=== PATIENT | male | born 1975 | race Caucasian/White ===

== ENCOUNTER 2018-06-01 08:33 | Emergency (ER) | payer BC ==
[2018-06-01 08:37] VITALS: RESP 16
--- NOTE | 2018-06-01 08:56 | ED ---
Abdominal Pain HPI - General Chief Complaint: Abdominal Pain Stated Complaint: Kidney stone Source: patient Mode of arrival: ambulatory Limitations: no limitations - History of Present Illness Initial Comments: This patient is a 42-year-old man who presents with complaint of right groin and right flank pain. The patient states that this occurred around 1 AM while he was trying to sleep. He states that the pain came on and was relatively severe, constant for about an hour, and had sharp achy characteristic. He states that the pain then improved going down to about a 1 out of 10 intensity area he states that when he got up to get ready for work around 5 he noticed that there was blood in his urine. The patient spoke with his and they felt he should be evaluated here. The patient denies previous history. Patient is declining analgesia at my initial history and physical exam. MD Complaint: abdominal pain, flank pain Onset/Timin -: hour(s) Location: RLQ (Right groin), R flank Radiation: none Severity: mild Quality: sharp Consistency: constant Improves With: nothing Worsens With: nothing Associated Symptoms: hematuria - Related Data Home Medications Medication Instructions Recorded Confirmed Ibuprofen [Motrin Ib] 400 mg PO Q6H PRN 06/01/18 06/01/18 Previous Rx's Medication Instructions Recorded Ciprofloxacin HCl [Cipro] 500 mg PO Q12HR #14 tablet 06/01/18 Allergies Allergy/AdvReac Type Severity Reaction Status Date / Time No Known Allergies Allergy Verified 06/01/18 08:37 Review of Systems ROS Statement: Those systems with pertinent positive or pertinent negative responses have been documented in the HPI. ROS Other: All systems not noted in ROS Statement are negative. Constitutional: Denies: fever, chills Respiratory: Denies: cough, dyspnea Cardiovascular: Denies: chest pain, palpitations, syncope Gastrointestinal: Reports: as per HPI, abdominal pain. Denies: vomiting, diarrhea, constipation, melena Genitourinary: Reports: hematuria. Denies: dysuria, frequency, discharge, testicular pain, testicular mass Musculoskeletal: Denies: back pain Skin: Denies: rash Neurological: Denies: headache Hematological/Lymphatic: Denies: easy bleeding Past Medical History Past Medical History: No Reported History History of Any Multi-Drug Resistant Organisms: None Reported Past Surgical History: Orthopedic Surgery Past Psychological History: No Psychological Hx Reported Smoking Status: Current every day smoker Past Alcohol Use History: None Reported Past Drug Use History: None Reported General Exam Limitations: no limitations General appearance: alert, in no apparent distress Head exam: Present: atraumatic, normocephalic Eye exam: Present: normal appearance. Absent: scleral icterus, conjunctival injection ENT exam: Present: normal oropharynx Neck exam: Present: normal inspection Respiratory exam: Present: normal lung sounds bilaterally. Absent: respiratory distress, wheezes, rales, rhonchi, stridor Cardiovascular Exam: Present: regular rate, normal rhythm, normal heart sounds. Absent: systolic murmur, diastolic murmur, rubs, gallop GI/Abdominal exam: Present: soft. Absent: distended, tenderness, guarding, rebound, rigid, mass, pulsatile mass, hernia Extremities exam: Present: normal inspection, normal capillary refill. Absent: pedal edema, calf tenderness Back exam: Present: normal inspection. Absent: CVA tenderness (R), CVA tenderness (L), vertebral tenderness Neurological exam: Present: alert, normal gait Skin exam: Present: warm, dry, intact, normal color. Absent: rash Course Vital Signs 06/01/18 08:35 Temperature 97.9 F Pulse Rate 99 Respiratory 16 Rate Blood Pressure 163/98 O2 Sat by Pulse 99 Oximetry Medical Decision Making - Lab Data Result diagrams: 06/01/18 09:50 06/01/18 09:30 Lab Results 06/01/18 06/01/18 06/01/18 Range/Units 09:30 09:30 09:50 WBC 7.7 (3.8-10.6) k/uL RBC 5.69 (4.30-5.90) m/uL Hgb 17.2 (13.0-17.5) gm/dL Hct 50.6 (39.0-53.0) % MCV 89.0 (80.0-100.0) fL MCH 30.2 (25.0-35.0) pg MCHC 33.9 (31.0-37.0) g/dL RDW 13.1 (11.5-15.5) % Plt Count 197 (150-450) k/uL Neutrophils % 63 % Lymphocytes % 28 % Monocytes % 6 % Eosinophils % 1 % Basophils % 1 % Neutrophils # 4.9 (1.3-7.7) k/uL Lymphocytes # 2.2 (1.0-4.8) k/uL Monocytes # 0.5 (0-1.0) k/uL Eosinophils # 0.1 (0-0.7) k/uL Basophils # 0.0 (0-0.2) k/uL Sodium 142 (137-145) mmol/L Potassium 4.4 (3.5-5.1) mmol/L Chloride 110 H (98-107) mmol/L Carbon Dioxide 21 L (22-30) mmol/L Anion Gap 11 mmol/L BUN 14 (9-20) mg/dL Creatinine 0.74 (0.66-1.25) mg/dL Est GFR (CKD-EPI)AfAm >90 (>60 ml/min/1.73 sqM) Est GFR (CKD-EPI)NonAf >90 (>60 ml/min/1.73 sqM) Glucose 98 (74-99) mg/dL Calcium 9.9 (8.4-10.2) mg/dL Total Bilirubin 0.6 (0.2-1.3) mg/dL AST 25 (17-59) U/L ALT 51 (21-72) U/L Alkaline Phosphatase 77 (38-126) U/L Total Protein 8.1 (6.3-8.2) g/dL Albumin 4.7 (3.5-5.0) g/dL Amylase 51 (30-110) U/L Lipase 51 (23-300) U/L Urine Color Light Red Urine Appearance Cloudy (Clear) Urine pH 5.5 (5.0-8.0) Ur Specific [place] 1.018 (1.001-1.035) Urine Protein 1+ H (Negative) Urine Glucose (UA) Negative (Negative) Urine Ketones Negative (Negative) Urine Blood Large H (Negative) Urine Nitrite Negative (Negative) Urine Bilirubin Negative (Negative) Urine Urobilinogen <2.0 (<2.0) mg/dL Ur Leukocyte Esterase Trace H (Negative) Urine RBC >182 H (0-5) /hpf Urine WBC 31 H (0-5) /hpf Urine Mucus Occasional H (None) /hpf Disposition Clinical Impression: Flank pain, Hematuria Disposition: HOME SELF-CARE Condition: Good Instructions (If sedation given, give patient instructions): Kidney Stones (ED) Prescriptions: Ciprofloxacin HCl [Cipro] 500 mg PO Q12HR #14 tablet Is patient prescribed a controlled substance at d/c from ED?: No Referrals: Checo Spears MD [Primary Care Provider] - 1-2 days Osmani Elizabeth MD [STAFF PHYSICIAN] - 1-2 days
[2018-06-01 09:51] LABS: ALT 51 U/L (21-72); AST 25 U/L (17-59); Albumin 4.7 g/dL (3.5-5.0); Alkaline Phosphatase 77 U/L (38-126); Amylase 51 U/L (30-110); Anion Gap 11 mmol/L; Blood Urea Nitrogen 14 mg/dL (9-20); Calcium 9.9 mg/dL (8.4-10.2); Carbon Dioxide 21 mmol/L (22-30); Chloride 110 mmol/L (98-107); Glucose 98 mg/dL (74-99); Lipase 51 U/L (23-300); Potassium 4.4 mmol/L (3.5-5.1); Sodium 142 mmol/L (137-145); Total Bilirubin 0.6 mg/dL (0.2-1.3); Total Protein 8.1 g/dL (6.3-8.2)
[2018-06-01 09:59] LABS: Basophils % (A) 1 %; Eosinophils # (A) 0.1 k/uL (0-0.7); Eosinophils % (A) 1 %; HCT 50.6 % (39.0-53.0); HGB 17.2 gm/dL (13.0-17.5); Lymphocytes # (A) 2.2 k/uL (1.0-4.8); Lymphocytes % (A) 28 %; MCH 30.2 pg (25.0-35.0); MCHC 33.9 g/dL (31.0-37.0); Mean Platelet Volume 7.1; Monocytes # (A) 0.5 k/uL (0-1.0); Monocytes % (A) 6 %; Neutrophils # (A) 4.9 k/uL (1.3-7.7); Neutrophils % (A) 63 %; Platelet Count 197 k/uL (150-450); RBC 5.69 m/uL (4.30-5.90); RDW 13.1 % (11.5-15.5); WBC 7.7 k/uL (3.8-10.6)
[2018-06-01 10:01] LABS: Appearance,Urine Cloudy (Clear); Bilirubin,Urine Negative (Negative); Blood,Urine Large (Negative); Color,Urine Light Red; Glucose,Urine (UA) Negative (Negative); Ketones,Urine Negative (Negative); Leukocyte Esterase,Urine Trace (Negative); Mucus,Urine Occasional /hpf; Nitrite,Urine Negative (Negative); PH, Urine 5.5 (5.0-8.0); Protein,Urine 1+ (Negative); RBC,Urine >182 /hpf (0-5); Specific Gravity,Urine 1.018 (1.001-1.035); Urobilinogen,Urine <2.0 mg/dL (<2.0); WBC,Urine 31 /hpf (0-5)
--- NOTE | 2018-06-01 10:36 | CT ---
EXAMINATION TYPE: CT abdomen pelvis wo con DATE OF EXAM: 06/01/2018 HISTORY: Gross hematuria, right-sided flank pain. CT DLP: 628.4 mGycm. Automated Exposure Control for Dose Reduction was Utilized. TECHNIQUE: CT scan of the abdomen and pelvis is performed without oral or IV contrast. COMPARISON: NONE FINDINGS: Within the limitations of a non-contrast study, the following observations are made. LUNG BASES: Dependent atelectasis bilaterally. Additional linear atelectasis and/or scarring in the l ing[place] near diaphragm. LIVER/GB: Liver is heterogeneously isodense relative to spleen suggesting mild diffuse fatty infiltra tion. PANCREAS: No significant abnormality is seen. SPLEEN: No significant abnormality is seen. ADRENALS: No significant abnormality is seen. KIDNEYS: No left-sided nephrolithiasis or hydronephrosis. There is single 3 mm nonobstructing calculu s lower pole level right kidney axial image 46. No hydronephrosis or obstructing right ureter calculi are seen. No intraluminal calculi in poorly distended bladder are identified. BOWEL: Normal-appearing appendix extends medially from cecum in the right upper to mid pelvis. No michelle picious small or large bowel dilatation. GENITAL ORGANS: No gross abnormality seen. LYMPH NODES: No greater than 1cm abdominal or pelvic lymph nodes are appreciated. OSSEOUS STRUCTURES: No significant abnormality is seen. OTHER: Small fat-containing bilateral inguinal hernias. Mild calcified plaque of aorta extends into i liac branch vessels. IMPRESSION: Single 3 mm nonobstructing lower pole right renal calculus. No hydronephrosis or obstruct ing ureter calculi are identified bilaterally.
[2018-06-01 10:57] VITALS: BP 136/93; PULSE 74; TEMP 98.3
== END 2018-06-01 10:50 | disposition home or self-care (01) ==
LOC: EC 08:33
DX: R10.31 Right lower quadrant pain (principal); R31.9 Hematuria, unspecified; F17.200 Nicotine dependence, unspecified, uncomplicated
CPT/HCPCS: 36415; 74176; 80053; 81001; 82150; 83690; 85025; 99284

== ENCOUNTER 2018-06-02 18:35 | Emergency (ER) | payer BC ==
[2018-06-02 18:40] VITALS: TEMP 97.7
[2018-06-02] MEDS ORDERED: SODIUM CHLORIDE 0.9% 1,000 ML IV STA (18:49)
[2018-06-02] MEDS ORDERED: MORPHINE SULFATE 4 MG/ML SYRINGE IV STA (18:49)
[2018-06-02] MEDS ORDERED: ONDANSETRON 4 MG/2 ML VIAL IVP STA (18:49)
--- NOTE | 2018-06-02 18:55 | ED ---
General Adult HPI - General Chief complaint: Abdominal Pain Stated complaint: Kidney stone Time Seen by Provider: 06/02/18 18:40 Source: patient, RN notes reviewed Mode of arrival: ambulatory Limitations: no limitations - History of Present Illness Initial comments: 42-year-old male presents to the emergency department for a chief complaint of right flank pain. Patient states this started 2 nights ago in his right groin pain that migrated to his right back. Patient states he also hematuria at that time. He states he presented to the emergency department yesterday but pain has mostly subsided. He had a CAT scan that showed a nonobstructing renal calculus in the right kidney. He states pain has been tolerable until about 2 hours ago when it worsened significantly. He states moving around seems to make the pain better. He was nauseous at home and did vomit due to the pain.Patient has no other complaints at this time including shortness of breath , chest pain, abdominal pain, nausea or vomiting, headache, or visual changes. - Related Data Previous Rx's Medication Instructions Recorded Ciprofloxacin HCl [Cipro] 500 mg PO Q12HR #14 tablet 06/01/18 HYDROcodone/APAP 5-325MG [[place] 1 tab PO Q6HR PRN #12 tab 06/02/18 5-325] Ibuprofen [Motrin] 600 mg PO Q8HR PRN #20 tab 06/02/18 Ondansetron [Zofran ODT] 4 mg PO Q8HR PRN #15 tab 06/02/18 Tamsulosin [Flomax] 0.4 mg PO DAILY #10 cap 06/02/18 Allergies Allergy/AdvReac Type Severity Reaction Status Date / Time No Known Allergies Allergy Verified 06/02/18 19:28 Review of Systems ROS Statement: Those systems with pertinent positive or pertinent negative responses have been documented in the HPI. ROS Other: All systems not noted in ROS Statement are negative. Past Medical History Past Medical History: No Reported History History of Any Multi-Drug Resistant Organisms: None Reported Past Surgical History: Orthopedic Surgery Past Psychological History: No Psychological Hx Reported Smoking Status: Current every day smoker Past Alcohol Use History: None Reported Past Drug Use History: None Reported General Exam Limitations: no limitations General appearance: alert, in no apparent distress Head exam: Present: atraumatic, normocephalic, normal inspection Eye exam: Present: normal appearance, PERRL, EOMI. Absent: scleral icterus, conjunctival injection, periorbital swelling ENT exam: Present: normal exam, mucous membranes moist Neck exam: Present: normal inspection, full ROM. Absent: tenderness, meningismus, lymphadenopathy Respiratory exam: Present: normal lung sounds bilaterally. Absent: respiratory distress, wheezes, rales, rhonchi, stridor Cardiovascular Exam: Present: regular rate, normal rhythm, normal heart sounds. Absent: systolic murmur, diastolic murmur, rubs, gallop, clicks GI/Abdominal exam: Present: soft, normal bowel sounds. Absent: distended, tenderness (no signif tenderness noted in abdomen), guarding, rebound, rigid Back exam: Present: CVA tenderness (R). Absent: CVA tenderness (L) Neurological exam: Present: alert, oriented X3, CN II-XII intact Psychiatric exam: Present: normal affect, normal mood Course Vital Signs 06/02/18 06/02/18 06/02/18 18:39 19:57 21:02 Temperature 97.7 F Pulse Rate 75 91 78 Respiratory 18 16 Rate Blood Pressure 211/114 177/109 167/100 O2 Sat by Pulse 98 96 100 Oximetry - Reevaluation(s) Reevaluation #1: 06/02/18 194: PATIENT FEELING MUCH BETTER, PAIN CURRENTLY AT A 2 Medical Decision Making - Medical Decision Making 42-year-old male presents to the emergency department for a chief complaint of right flank pain radiating to the right groin. Patient states this started early yesterday morning and he was seen in the emergency department and diagnosed with a kidney stone. Patient states pain was improved until about 2 hours ago and it worsened again. He states movement makes the pain better and resting in one position seems to make him more uncomfortable. CT from yesterday did show a 3 mm renal stone nonobstructing. Hematuria noted. Urinalysis repeated today did show hematuria. It is likely patient is experiencing renal colic or the stone has now lodged in the ureter. At this time Dr. Saleem and myself believe it is not necessary to repeat the CAT scan given patient symptoms are consistent with renal colic. Patient's pain was much improved on re-evaluation.. Patient's hypertension improved, likely due to pain. XR was ordered for urologist. Patient will be given [place] for pain at home, discussed not driving or operating machinery with this. Patient agrees to this. He will return here if he has worsening symptoms. Otherwise he will follow-up with urology. - Lab Data Result diagrams: 06/02/18 19:07 06/02/18 19:07 Lab Results 06/02/18 06/02/18 06/02/18 Range/Units 19:07 19:07 19:59 WBC 14.4 H (3.8-10.6) k/uL RBC 5.34 (4.30-5.90) m/uL Hgb 16.2 (13.0-17.5) gm/dL Hct 48.6 (39.0-53.0) % MCV 91.0 (80.0-100.0) fL MCH 30.4 (25.0-35.0) pg MCHC 33.4 (31.0-37.0) g/dL RDW 13.5 (11.5-15.5) % Plt Count 232 (150-450) k/uL Neutrophils % 75 % Lymphocytes % 17 % Monocytes % 5 % Eosinophils % 1 % Basophils % 0 % Neutrophils # 10.8 H (1.3-7.7) k/uL Lymphocytes # 2.5 (1.0-4.8) k/uL Monocytes # 0.7 (0-1.0) k/uL Eosinophils # 0.1 (0-0.7) k/uL Basophils # 0.1 (0-0.2) k/uL Sodium 140 (137-145) mmol/L Potassium 4.5 (3.5-5.1) mmol/L Chloride 108 H (98-107) mmol/L Carbon Dioxide 21 L (22-30) mmol/L Anion Gap 11 mmol/L BUN 21 H (9-20) mg/dL Creatinine 1.09 (0.66-1.25) mg/dL Est GFR (CKD-EPI)AfAm >90 (>60 ml/min/1.73 sqM) Est GFR (CKD-EPI)NonAf 83 (>60 ml/min/1.73 sqM) Glucose 123 H (74-99) mg/dL Calcium 10.1 (8.4-10.2) mg/dL Total Bilirubin 0.6 (0.2-1.3) mg/dL AST 26 (17-59) U/L ALT 44 (21-72) U/L Alkaline Phosphatase 91 (38-126) U/L Total Protein 8.3 H (6.3-8.2) g/dL Albumin 4.9 (3.5-5.0) g/dL Amylase 51 (30-110) U/L Lipase 57 (23-300) U/L Urine Color Light Yellow Urine Appearance Cloudy (Clear) Urine pH 7.5 (5.0-8.0) Ur Specific [place] 1.014 (1.001-1.035) Urine Protein Negative (Negative) Urine Glucose (UA) Negative (Negative) Urine Ketones Negative (Negative) Urine Blood Moderate H (Negative) Urine Nitrite Negative (Negative) Urine Bilirubin Negative (Negative) Urine Urobilinogen <2.0 (<2.0) mg/dL Ur Leukocyte Esterase Negative (Negative) Urine RBC 163 H (0-5) /hpf Urine WBC 3 (0-5) /hpf Amorphous Sediment Few H (None) /hpf Urine Mucus Rare H (None) /hpf Disposition Clinical Impression: Renal colic on right side, Hematuria Disposition: HOME SELF-CARE Condition: Good Instructions (If sedation given, give patient instructions): Kidney Stones (ED) Additional Instructions: Please take medicine as directed. Please follow-up with urology in 1-2 days. Please return here to the emergency department if youre having any worsening symptoms. Prescriptions: HYDROcodone/APAP 5-325MG [[place] 5-325] 1 tab PO Q6HR PRN #12 tab PRN Reason: Pain Ibuprofen [Motrin] 600 mg PO Q8HR PRN #20 tab PRN Reason: Pain Ondansetron [Zofran ODT] 4 mg PO Q8HR PRN #15 tab PRN Reason: Nausea Tamsulosin [Flomax] 0.4 mg PO DAILY #10 cap Is patient prescribed a controlled substance at d/c from ED?: No Referrals: Checo Spears MD [Primary Care Provider] - 1-2 days Mak Downey MD [STAFF PHYSICIAN] - 1-2 days Time of Disposition: 21:22
[2018-06-02] MEDS ORDERED: KETOROLAC 30 MG/ML 1 ML VIAL IVP STA (19:06)
[2018-06-02 19:23] LABS: Basophils # (A) 0.1 k/uL (0-0.2); Basophils % (A) 0 %; Eosinophils # (A) 0.1 k/uL (0-0.7); Eosinophils % (A) 1 %; HCT 48.6 % (39.0-53.0); HGB 16.2 gm/dL (13.0-17.5); Lymphocytes # (A) 2.5 k/uL (1.0-4.8); Lymphocytes % (A) 17 %; MCH 30.4 pg (25.0-35.0); MCHC 33.4 g/dL (31.0-37.0); Mean Platelet Volume 6.6; Monocytes # (A) 0.7 k/uL (0-1.0); Monocytes % (A) 5 %; Neutrophils # (A) 10.8 k/uL (1.3-7.7); Neutrophils % (A) 75 %; Platelet Count 232 k/uL (150-450); RBC 5.34 m/uL (4.30-5.90); RDW 13.5 % (11.5-15.5); WBC 14.4 k/uL (3.8-10.6)
[2018-06-02 19:37] LABS: ALT 44 U/L (21-72); AST 26 U/L (17-59); Albumin 4.9 g/dL (3.5-5.0); Alkaline Phosphatase 91 U/L (38-126); Amylase 51 U/L (30-110); Anion Gap 11 mmol/L; Blood Urea Nitrogen 21 mg/dL (9-20); Calcium 10.1 mg/dL (8.4-10.2); Carbon Dioxide 21 mmol/L (22-30); Chloride 108 mmol/L (98-107); Glucose 123 mg/dL (74-99); Lipase 57 U/L (23-300); Potassium 4.5 mmol/L (3.5-5.1); Sodium 140 mmol/L (137-145); Total Bilirubin 0.6 mg/dL (0.2-1.3); Total Protein 8.3 g/dL (6.3-8.2)
[2018-06-02 19:58] VITALS: RESP 16
[2018-06-02 20:13] LABS: Amorphous Sediment,Urine Few /hpf; Appearance,Urine Cloudy (Clear); Bilirubin,Urine Negative (Negative); Blood,Urine Moderate (Negative); Color,Urine Light Yellow; Glucose,Urine (UA) Negative (Negative); Ketones,Urine Negative (Negative); Leukocyte Esterase,Urine Negative (Negative); Mucus,Urine Rare /hpf; Nitrite,Urine Negative (Negative); PH, Urine 7.5 (5.0-8.0); Protein,Urine Negative (Negative); RBC,Urine 163 /hpf (0-5); Specific Gravity,Urine 1.014 (1.001-1.035); Urobilinogen,Urine <2.0 mg/dL (<2.0); WBC,Urine 3 /hpf (0-5)
[2018-06-02] MEDS ORDERED: HYDROmorphone 0.5 MG/0.5 ML SYRINGE IVP STA (20:40)
--- NOTE | 2018-06-02 20:48 | XR ---
EXAMINATION TYPE: XR KUB DATE OF EXAM: 06/02/2018 COMPARISON: NONE HISTORY: Pain TECHNIQUE: 2 views FINDINGS: There is no sign of intestinal obstruction or pneumoperitoneum. Fecal pattern is normal. Th ere are no pathologic calcifications. Lung bases are clear. IMPRESSION: Nonacute abdomen.
[2018-06-02 21:02] VITALS: BP 167/100; PULSE 78
== END 2018-06-02 21:51 | disposition home or self-care (01) ==
LOC: EC 18:35
DX: N23 Unspecified renal colic (principal); R31.9 Hematuria, unspecified; I10 Essential (primary) hypertension; F17.200 Nicotine dependence, unspecified, uncomplicated
CPT/HCPCS: 36415; 80053; 82150; 83690; 85025; 81001; 87086; 74018; 99284; 96374; 96375 ×3; 96361; J2270; J2405; J1885; J1170

== ENCOUNTER 2018-06-04 13:05 | Observation (INO) | payer BC ==
[2018-06-04] MEDS ORDERED: SODIUM CHLORIDE 0.9% 1,000 ML IV STA (13:52)
[2018-06-04] MEDS ORDERED: oxyCODONE-APAP 7.5-325MG 1 EACH TAB PO STA (14:01)
[2018-06-04 14:10] LABS: Basophils % (A) 0 %; Eosinophils % (A) 0 %; HCT 47.5 % (39.0-53.0); HGB 16.5 gm/dL (13.0-17.5); Lymphocytes # (A) 1.5 k/uL (1.0-4.8); Lymphocytes % (A) 12 %; MCH 30.7 pg (25.0-35.0); MCHC 34.7 g/dL (31.0-37.0); MCV 88.7 fL (80.0-100.0); Mean Platelet Volume 7.2; Monocytes # (A) 0.8 k/uL (0-1.0); Monocytes % (A) 6 %; Neutrophils % (A) 80 %; Platelet Count 175 k/uL (150-450); RBC 5.36 m/uL (4.30-5.90); WBC 12.6 k/uL (3.8-10.6)
[2018-06-04 14:18] LABS: Calcium 9.7 mg/dL (8.4-10.2); Potassium 4.2 mmol/L (3.5-5.1)
[2018-06-04 14:21] LABS: Appearance,Urine Clear (Clear); Bilirubin,Urine Negative (Negative); Blood,Urine Moderate (Negative); Color,Urine Yellow; Glucose,Urine (UA) Negative (Negative); Hyaline Casts,Urine 1 /lpf (0-2); Ketones,Urine Trace (Negative); Leukocyte Esterase,Urine Negative (Negative); Mucus,Urine Rare /hpf; Nitrite,Urine Negative (Negative); PH, Urine 5.5 (5.0-8.0); Protein,Urine Trace (Negative); RBC,Urine 6 /hpf (0-5); Specific Gravity,Urine 1.024 (1.001-1.035); Urobilinogen,Urine <2.0 mg/dL (<2.0); WBC,Urine 1 /hpf (0-5)
--- NOTE | 2018-06-04 14:52 | US ---
EXAMINATION TYPE: US kidneys/renal and bladder DATE OF EXAM: 06/04/2018 COMPARISON: NONE CLINICAL HISTORY: eval Kidney, ureter, bladder, recently dx stone. right sided pain ongoing for days, known 3mm right renal stone EXAM MEASUREMENTS: Right Kidney: 12.3 x 6.5 x 6.4 cm Left Kidney: 12.0 x 6.3 x 5.9 cm Right Kidney: No hydronephrosis or masses seen Left Kidney: No hydronephrosis or masses seen Bladder: minimally distended, appears wnl Bilateral Jets seen: no There is no evidence for hydronephrosis at this point in time. No nephrolithiasis is seen. No dc s are identified. The urinary bladder is anechoic. Bilateral ureteral jets are seen. IMPRESSION: No evidence of renal mass or obstruction. Negative exam.
--- NOTE | 2018-06-04 15:15 | ED ---
General Adult HPI - General Chief complaint: Urogenital Stated complaint: POSS KIDNEY STONE Time Seen by Provider: 06/04/18 13:39 Source: patient Mode of arrival: ambulatory Limitations: no limitations - History of Present Illness Initial comments: Patient is a 42-year-old male presenting for right flank pain. Patient states that on , he was diagnosed with 3 mm stone. He was seen here for hematuria at that time. He was then seen again on Tuesday for worsening pain. He states that he was given additional medicine and that he was discharged. He states that he is his unable to tolerate the pain as it is located on the right flank and feels a constant pressure. He denies any fevers or chills and states that he has been able to urinate without difficulty. - Related Data Previous Rx's Medication Instructions Recorded Ciprofloxacin HCl [Cipro] 500 mg PO Q12HR #14 tablet 06/01/18 HYDROcodone/APAP 5-325MG [[place] 1 tab PO Q6HR PRN #12 tab 06/02/18 5-325] Ibuprofen [Motrin] 600 mg PO Q8HR PRN #20 tab 06/02/18 Ondansetron [Zofran ODT] 4 mg PO Q8HR PRN #15 tab 06/02/18 Tamsulosin [Flomax] 0.4 mg PO DAILY #10 cap 06/02/18 Allergies Allergy/AdvReac Type Severity Reaction Status Date / Time No Known Allergies Allergy Verified 06/04/18 14:22 Review of Systems ROS Statement: Those systems with pertinent positive or pertinent negative responses have been documented in the HPI. Constitutional: Negative for chills, fatigue and fever. HENT: Negative for congestion. Respiratory: Negative for chest tightness, shortness of breath and wheezing. Negative for cough Cardiovascular: Negative for chest pain and palpitations. Gastrointestinal: Positive for abdominal pain and nausea. Negative for abdominal distention, diarrhea, and vomiting. Genitourinary: Negative for dysuria. Musculoskeletal: Negative for back pain, neck pain and neck stiffness. Skin: Negative for color change. Neurological: Negative for dizziness, speech difficulty, weakness and light- headedness. Psychiatric/Behavioral: Negative for agitation and confusion. Negative for anxiety ROS Other: All systems not noted in ROS Statement are negative. Past Medical History Past Medical History: No Reported History Additional Past Medical History / Comment(s): kidney stones History of Any Multi-Drug Resistant Organisms: None Reported Past Surgical History: Orthopedic Surgery Past Psychological History: No Psychological Hx Reported Smoking Status: Current every day smoker Past Alcohol Use History: Rare Past Drug Use History: None Reported General Exam - General Exam Comments Initial Comments: Constitutional: Pt appears well-developed and well-nourished. No distress. Head: Normocephalic and atraumatic. Eyes: EOM are normal. Neck: Normal range of motion. Neck supple. Cardiovascular: Tachycardia, regular rhythm, S1 normal, S2 normal and normal heart sounds. Exam reveals no gallop and no friction rub. No murmur heard. Pulmonary/Chest: Effort normal and breath sounds normal. No tachypnea and no bradypnea. No respiratory distress. No wheezes or rales noted. Abdominal: Soft. Bowel sounds are normal. Pt exhibits no shifting dullness, no distension, no pulsatile liver, no fluid wave, no abdominal bruit and no ascites. There is no rigidity, no rebound, no guarding, no tenderness at McBurney's point and negative Humphrey's sign. There is no tenderness. Positive for right flank tenderness Musculoskeletal: Normal range of motion. Neurological: Pt is alert and oriented to person, place, and time. No cranial nerve deficit. Skin: Skin is warm and dry. No rash noted. Pt is not diaphoretic. No erythema. No pallor. Psychiatric: Pt has a normal mood and affect. Pt behavior is normal. Thought content normal. Limitations: no limitations Course Vital Signs 06/04/18 06/04/18 06/04/18 13:22 16:46 17:02 Temperature 98.5 F Pulse Rate 104 H 95 86 Respiratory 18 16 16 Rate Blood Pressure 188/94 168/105 135/83 O2 Sat by Pulse 97 95 95 Oximetry Medical Decision Making - Medical Decision Making Laboratory studies showed that there was mild leukocytosis at 12.6 but there was no evidence of urinary tract infection from the urinalysis. BMP showed that there was evidence of acute kidney injury with a creatinine rising from 0.74 to the latest value of 1.55. GFR is also decreased from greater than 90 to 63. Case was discussed with Dr. Martínez after KUB and ultrasound of the abdomen showed no significant findings and it was recommended that CT of the abdomen be performed. CT showed small obstructing calculi at the right UVJ. Calculus had migrated from the lower pole of the right kidney compared to last exam and there was evidence of hydroureter as well as right-sided hydronephrosis. Case was then again discussed with Dr. Martínez and it was mutually agreed that the patient will be admitted to hospital for pain control as he had a heart doses of narcotics. - Lab Data Result diagrams: 06/04/18 13:41 06/04/18 13:41 Lab Results 06/04/18 06/04/18 06/04/18 Range/Units 13:41 13:41 13:41 WBC 12.6 H (3.8-10.6) k/uL RBC 5.36 (4.30-5.90) m/uL Hgb 16.5 (13.0-17.5) gm/dL Hct 47.5 (39.0-53.0) % MCV 88.7 (80.0-100.0) fL MCH 30.7 (25.0-35.0) pg MCHC 34.7 (31.0-37.0) g/dL RDW 13.0 (11.5-15.5) % Plt Count 175 (150-450) k/uL Neutrophils % 80 % Lymphocytes % 12 % Monocytes % 6 % Eosinophils % 0 % Basophils % 0 % Neutrophils # 10.0 H (1.3-7.7) k/uL Lymphocytes # 1.5 (1.0-4.8) k/uL Monocytes # 0.8 (0-1.0) k/uL Eosinophils # 0.0 (0-0.7) k/uL Basophils # 0.0 (0-0.2) k/uL Sodium 137 (137-145) mmol/L Potassium 4.2 (3.5-5.1) mmol/L Chloride 105 (98-107) mmol/L Carbon Dioxide 23 (22-30) mmol/L Anion Gap 9 mmol/L BUN 19 (9-20) mg/dL Creatinine 1.55 H (0.66-1.25) mg/dL Est GFR (CKD-EPI)AfAm 63 (>60 ml/min/1.73 sqM) Est GFR (CKD-EPI)NonAf 54 (>60 ml/min/1.73 sqM) Glucose 119 H (74-99) mg/dL Calcium 9.7 (8.4-10.2) mg/dL Urine Color Yellow Urine Appearance Clear (Clear) Urine pH 5.5 (5.0-8.0) Ur Specific [place] 1.024 (1.001-1.035) Urine Protein Trace H (Negative) Urine Glucose (UA) Negative (Negative) Urine Ketones Trace H (Negative) Urine Blood Moderate H (Negative) Urine Nitrite Negative (Negative) Urine Bilirubin Negative (Negative) Urine Urobilinogen <2.0 (<2.0) mg/dL Ur Leukocyte Esterase Negative (Negative) Urine RBC 6 H (0-5) /hpf Urine WBC 1 (0-5) /hpf Hyaline Casts 1 (0-2) /lpf Urine Mucus Rare H (None) /hpf Disposition Clinical Impression: Acute kidney injury, Ureteral calculi, Intractable pain Disposition: ADMITTED IP TO THIS [facility] Condition: Good Referrals: Checo Spears MD [Primary Care Provider] - 1-2 days Decision to Admit Reason: Admit from EC Decision Date: 06/04/18 Decision Time: 18:42
--- NOTE | 2018-06-04 15:25 | XR ---
EXAMINATION TYPE: XR KUB DATE OF EXAM: 06/04/2018 COMPARISON: NONE HISTORY: Renal stone. Pain. TECHNIQUE: 2 views upright FINDINGS: There is no sign of intestinal obstruction or pneumoperitoneum. Fecal pattern is normal. I see no pathologic calcification over the kidneys and ureters. Lung bases are clear. IMPRESSION: Nonacute abdomen.
[2018-06-04] MEDS ORDERED: MORPHINE SULFATE 4 MG/ML SYRINGE IVP STA (15:36)
[2018-06-04] MEDS ORDERED: ONDANSETRON 4 MG/2 ML VIAL IVP STA (15:42)
[2018-06-04] MEDS ORDERED: HYDROmorphone 0.5 MG/0.5 ML SYRINGE IVP STA (16:19)
[2018-06-04] MEDS ORDERED: KETOROLAC 30 MG/ML 1 ML VIAL IVP STA (16:19)
--- NOTE | 2018-06-04 17:07 | CT ---
EXAMINATION TYPE: CT abdomen pelvis wo con DATE OF EXAM: 06/04/2018 COMPARISON: 06/01/2018 HISTORY: Right flank pain CT DLP: 642.4 mGycm Automated exposure control for dose reduction was used. TECHNIQUE: Helical acquisition of images was performed from the lung bases through the pelvis. FINDINGS: There is some patchy atelectasis at the lung bases. There is small hiatal hernia. Heart size is ede l. There is no pericardial effusion. There is no pleural effusion. Liver spleen pancreas appear normal. Gallbladder appears normal. Bile ducts are not dilated. Kidneys have normal size. There is right-sided hydronephrosis and mild perinephric edema. There is ri ght-sided hydroureter. There is right side. Ureteral edema. There is a 5 mm calculus at the right ure terovesical junction. Bladder distends smoothly. Left kidney shows no hydronephrosis. There is no ing uinal hernia. There is no free fluid in the pelvis. There is no evidence of a bowel obstruction. Appendix appears n ormal. There is no mesenteric edema. The bony structures are intact. Lumbar spine appears normal. IMPRESSION: SMALL OBSTRUCTING CALCULUS AT THE RIGHT URETEROVESICAL JUNCTION. CALCULUS HAS MIGRATED FROM THE LOWER POLE RIGHT KIDNEY COMPARED TO LAST EXAM.
[2018-06-04] MEDS ORDERED: ACETAMINOPHEN TAB 325 MG TAB PO PRN (18:34)
[2018-06-04] MEDS ORDERED: ONDANSETRON 4 MG/2 ML VIAL IVP PRN (18:34)
[2018-06-04] MEDS ORDERED: NALOXONE 0.4 MG/ML 1 ML VIAL IV PRN (18:34)
[2018-06-04] MEDS ORDERED: SODIUM CHLORIDE 0.9% 1,000 ML IV SCH (18:45)
[2018-06-04] MEDS ORDERED: BISACODYL 10 MG SUPP RECTAL STA (20:38)
[2018-06-04] MEDS ORDERED: TAMSULOSIN 0.4 MG CAP.ER.24H PO SCH (20:45)
[2018-06-04] MEDS: HYDROmorphone 0.5 MG/0.5 ML SYRINGE IVP PRN (21:27)
[2018-06-04] MEDS: DOCUSATE 100 MG CAP PO SCH (21:30)
[2018-06-05 00:18] VITALS: RESP 16
[2018-06-05] MEDS: KETOROLAC 30 MG/ML 1 ML VIAL IVP PRN ×2 (00:36→07:02)
[2018-06-05] MEDS: HYDROmorphone 0.5 MG/0.5 ML SYRINGE IVP PRN ×4 (00:37→10:11)
--- NOTE | 2018-06-05 06:54 | P.GSHP ---
History of Present Illness H&P Date: 06/05/18 This is a 42-year-old gentleman who since last has had acute right sided flank and right lower quadrant pain. He was evaluated emergency room where a computed tomography scan identified a renal stone. He was discharged home only to return twice more including last night. The pain became quite severe. His creatinine elevated 1.5. KUB was nonspecific at that point in time. Emergency room contacted me and I recommended a repeat computed tomography scan is given the history of bloody urine flank pain and a rising creatinine I expected that he had an obstruction since he had no other major medical illnesses. The computed tomography scan last night identified a 5 mm stone at the ureterovesical junction. Due to persistent pain he is brought in the hospital. This is the patient's first stone. There's been no fever or chills. He has no other urologic issues. He has no other stones on the computed tomography scan reviewed by me. - Constitutional Constitutional: Denies chills, Denies fever - EENT Eyes: denies blurred vision, denies pain Ears, nose, mouth and throat: Denies headache, Denies sore throat - Cardiovascular Cardiovascular: Denies chest pain, Denies shortness of breath - Respiratory Respiratory: Denies cough, Denies 7 - Gastrointestinal Gastrointestinal: Denies abdominal pain, Denies diarrhea, Denies nausea, Denies vomiting - Genitourinary (Female) Genitourinary: Denies dysuria, Denies hematuria - Genitourinary (Male) Genitourinary: Denies dysuria, Denies hematuria - Musculoskeletal Musculoskeletal: Denies myalgias - Integumentary Integumentary: Denies pruritus, Denies rash - Neurological Neurological: Denies numbness, Denies weakness - Psychiatric Psychiatric: Denies anxiety, Denies depression - Endocrine Endocrine: Denies fatigue, Denies weight change Past Medical History Past Medical History: No Reported History Additional Past Medical History / Comment(s): kidney stones History of Any Multi-Drug Resistant Organisms: None Reported Past Surgical History: Orthopedic Surgery Past Psychological History: No Psychological Hx Reported Smoking Status: Current every day smoker Past Alcohol Use History: Rare Past Drug Use History: None Reported Medications and Allergies Home Medications Medication Instructions Recorded Confirmed Type Ciprofloxacin HCl [Cipro] 500 mg PO Q12HR #14 tablet 06/01/18 06/04/18 Rx HYDROcodone/APAP 5-325MG [[place] 1 tab PO Q6HR PRN #12 tab 06/02/18 06/04/18 Rx 5-325] Ibuprofen [Motrin] 600 mg PO Q8HR PRN #20 tab 06/02/18 06/04/18 Rx Ondansetron [Zofran ODT] 4 mg PO Q8HR PRN #15 tab 06/02/18 06/04/18 Rx Tamsulosin [Flomax] 0.4 mg PO DAILY #10 cap 06/02/18 06/04/18 Rx Allergies Allergy/AdvReac Type Severity Reaction Status Date / Time No Known Allergies Allergy Verified 06/04/18 14:22 Surgical - Exam Vital Signs Temp Pulse Resp BP Pulse Ox 98.5 F 104 H 18 188/94 97 06/04/18 13:22 06/04/18 13:22 06/04/18 13:22 06/04/18 13:22 06/04/18 13:22 - General Mild discomfort in the right lower quadrant. well developed, well nourished - Eyes PERRL - ENT no hearing loss - Neck trachea midline - Respiratory normal expansion, normal respiratory effort - Cardiovascular Rhythm: regular - Abdomen Abdomen: tender - Genitourinary normal penis with no external lesions, testicles present - Integumentary no rash, no growths - Neurologic normal coordination, normal sensation - Musculoskeletal normal posture - Psychiatric oriented to time, oriented to person, oriented to place, speech is normal, memory intact Results - Labs 06/04/18 13:41 06/04/18 13:41 Abnormal Lab Results - Last 24 Hours (Table) 06/04/18 06/04/18 06/04/18 Range/Units 13:41 13:41 13:41 WBC 12.6 H (3.8-10.6) k/uL Neutrophils # 10.0 H (1.3-7.7) k/uL Creatinine 1.55 H (0.66-1.25) mg/dL Glucose 119 H (74-99) mg/dL Urine Protein Trace H (Negative) Urine Ketones Trace H (Negative) Urine Blood Moderate H (Negative) Urine RBC 6 H (0-5) /hpf Urine Mucus Rare H (None) /hpf Diabetes panel 06/04/18 Range/Units 13:41 Sodium 137 (137-145) mmol/L Potassium 4.2 (3.5-5.1) mmol/L Chloride 105 (98-107) mmol/L Carbon Dioxide 23 (22-30) mmol/L BUN 19 (9-20) mg/dL Creatinine 1.55 H (0.66-1.25) mg/dL Glucose 119 H (74-99) mg/dL Calcium 9.7 (8.4-10.2) mg/dL Calcium panel 06/04/18 Range/Units 13:41 Calcium 9.7 (8.4-10.2) mg/dL Pituitary panel 06/04/18 Range/Units 13:41 Sodium 137 (137-145) mmol/L Potassium 4.2 (3.5-5.1) mmol/L Chloride 105 (98-107) mmol/L Carbon Dioxide 23 (22-30) mmol/L BUN 19 (9-20) mg/dL Creatinine 1.55 H (0.66-1.25) mg/dL Glucose 119 H (74-99) mg/dL Calcium 9.7 (8.4-10.2) mg/dL Adrenal panel 06/04/18 Range/Units 13:41 Sodium 137 (137-145) mmol/L Potassium 4.2 (3.5-5.1) mmol/L Chloride 105 (98-107) mmol/L Carbon Dioxide 23 (22-30) mmol/L BUN 19 (9-20) mg/dL Creatinine 1.55 H (0.66-1.25) mg/dL Glucose 119 H (74-99) mg/dL Calcium 9.7 (8.4-10.2) mg/dL - Imaging CT scan - abdomen: report reviewed, image reviewed CT scan - pelvis: report reviewed, image reviewed Assessment and Plan Assessment: Impression: The patient has a 5 mm UVJ stone on the right. He has had persistent pain. We discussed treatment options and he would like the stone removed. Plan: The patient we discharged home later this morning. I will meet him at the outpatient surgery Center this afternoon or I'm performing surgery will day. I will set him up for a right ureteroscopy laser lithotripsy probable stent.
--- NOTE | 2018-06-05 06:59 | P.DS ---
Providers Date of admission: 06/04/18 18:35 Attending physician: Velasquez Martínez Primary care physician: Checo Spears Hospital Course: The patient was admitted for IV parenteral narcotics for acute ureteral colic that is gone on since last . A 5 mm distal ureteral stone. He is reasonable comfortable this morning but would like surgery to remove it. I'm at the outpatient surgery several day and since his pain is recently well controlled he'll be discharged anemia therefore a ureteroscopic stone extraction later this morning. Patient Condition at Discharge: Good Plan - Discharge Summary Discharge Rx Participant: No New Discharge Prescriptions: New HYDROcodone/APAP 5-325MG [[place] 5-325] 1 tab PO Q4HR PRN #14 tab PRN Reason: Pain No Action Ciprofloxacin HCl [Cipro] 500 mg PO Q12HR #14 tablet HYDROcodone/APAP 5-325MG [[place] 5-325] 1 tab PO Q6HR PRN #12 tab PRN Reason: Pain Ibuprofen [Motrin] 600 mg PO Q8HR PRN #20 tab PRN Reason: Pain Ondansetron [Zofran ODT] 4 mg PO Q8HR PRN #15 tab PRN Reason: Nausea Tamsulosin [Flomax] 0.4 mg PO DAILY #10 cap Discharge Medication List Ciprofloxacin HCl [Cipro] 500 mg PO Q12HR #14 tablet 06/01/18 [Rx] HYDROcodone/APAP 5-325MG [[place] 5-325] 1 tab PO Q6HR PRN #12 tab 06/02/18 [Rx] Ibuprofen [Motrin] 600 mg PO Q8HR PRN #20 tab 06/02/18 [Rx] Ondansetron [Zofran ODT] 4 mg PO Q8HR PRN #15 tab 06/02/18 [Rx] Tamsulosin [Flomax] 0.4 mg PO DAILY #10 cap 06/02/18 [Rx] HYDROcodone/APAP 5-325MG [[place] 5-325] 1 tab PO Q4HR PRN #14 tab 06/05/18 [Rx] Follow up Appointment(s)/Referral(s): Checo Spears MD [Primary Care Provider] - 1-2 days Discharge Disposition: HOME SELF-CARE
[2018-06-05 07:09] VITALS: BP 184/91; PULSE 91; TEMP 98.8
[2018-06-05] MEDS: DOCUSATE 100 MG CAP PO SCH (10:26)
== END 2018-06-05 10:28 | disposition home or self-care (01) ==
LOC: EC 13:05 → 4SSUR 18:35
PROVIDERS: ADMIT Urology; ATTEND Urology
DX: N13.2 Hydronephrosis with renal and ureteral calculous obstruction (principal); N17.9 Acute kidney failure, unspecified; D72.829 Elevated white blood cell count, unspecified; F17.200 Nicotine dependence, unspecified, uncomplicated; Z79.899 Other long term (current) drug therapy; Z87.442 Personal history of urinary calculi
CPT/HCPCS: 96376; 96361; 96374; 96375; 99285; 36415; 80048; 85025; 81001; 74018; 76770; 74176; G0378 ×2; J2270; J2405; J1885 ×2; J1170 ×2

== ENCOUNTER 2018-12-22 12:34 | Emergency (ER) | payer BC ==
[2018-12-22 12:49] VITALS: RESP 18
--- NOTE | 2018-12-22 14:17 | ED ---
General Adult HPI - General Chief complaint: Recheck/Abnormal Lab/Rx Stated complaint: hypotensive Time Seen by Provider: 12/22/18 13:24 Source: patient, RN notes reviewed Mode of arrival: ambulatory Limitations: no limitations - History of Present Illness Initial comments: This a 43-year-old male presents emergency Department chief complaint of feeling lightheaded. Patient states that he's had some on-and-off symptoms or last 3-4 weeks did see PCP yesterday who diagnosed him with hypertension placed on low- dose lisinopril with hydrochlorothiazide. Patient states that he took a dose last night and early this morning. Patient states that work he felt really lightheaded and he had some numbness in his arms radiating from his neck region. Patient states that he's had some intermittent headaches no symptoms currently. Denies any chest pain, palpitations, nausea vomiting. Patient states that he became concerned that he may have dropped his blood pressure too low because he took 2 pills within closer. Then prescribed. Patient denies syncope denies focal weakness - Related Data Home Medications Medication Instructions Recorded Confirmed Ibuprofen [Motrin] 800 mg PO DAILY PRN 12/22/18 12/22/18 Lisinopril-Hctz 10-12.5 mg 1 tab PO DAILY 12/22/18 12/22/18 [Zestoretic 10-12.5] Allergies Allergy/AdvReac Type Severity Reaction Status Date / Time No Known Allergies Allergy Verified 12/22/18 13:28 Review of Systems ROS Statement: Those systems with pertinent positive or pertinent negative responses have been documented in the HPI. ROS Other: All systems not noted in ROS Statement are negative. Past Medical History Past Medical History: Hypertension Additional Past Medical History / Comment(s): kidney stones History of Any Multi-Drug Resistant Organisms: None Reported Past Surgical History: Orthopedic Surgery Past Psychological History: No Psychological Hx Reported Smoking Status: Current every day smoker Past Alcohol Use History: Rare Past Drug Use History: None Reported General Exam Limitations: no limitations General appearance: alert, in no apparent distress Head exam: Present: atraumatic, normocephalic, normal inspection Eye exam: Present: normal appearance, PERRL, EOMI. Absent: scleral icterus, conjunctival injection, periorbital swelling ENT exam: Present: normal exam, normal oropharynx, mucous membranes moist Neck exam: Present: normal inspection, full ROM. Absent: tenderness, mening ismus, lymphadenopathy Respiratory exam: Present: normal lung sounds bilaterally. Absent: respiratory distress, wheezes, rales, rhonchi, stridor Cardiovascular Exam: Present: regular rate (Patient was tachycardic on triage though heart rate 86 on exam), normal rhythm, normal heart sounds. Absent: systolic murmur, diastolic murmur, rubs, gallop, clicks GI/Abdominal exam: Present: soft, normal bowel sounds. Absent: distended, tenderness, guarding, rebound, rigid Neurological exam: Present: alert, oriented X3, CN II-XII intact, reflexes normal, other (Finger to nose intact bilaterally without over shooting). Absent: motor sensory deficit Skin exam: Present: warm, dry, intact, normal color. Absent: rash Course Vital Signs 12/22/18 12:46 Temperature 98.0 F Pulse Rate 110 H Respiratory 18 Rate Blood Pressure 139/87 O2 Sat by Pulse 97 Oximetry Medical Decision Making - Medical Decision Making 43-year-old male presented for lightheaded episode, neck and arm pain. Patient symptoms and his neck cramps injury or related cervical radiculopathy. Patient denies any current symptoms. Patient was concerned about possible hypotension related to new blood pressure medication. Blood pressure has been stable. Patient will be discharged return parameters were discussed. - Lab Data Result diagrams: 12/22/18 13:52 12/22/18 13:52 Lab Results 12/22/18 12/22/18 12/22/18 Range/Units 13:48 13:52 13:52 WBC 9.6 (3.8-10.6) k/uL RBC 5.25 (4.30-5.90) m/uL Hgb 16.3 (13.0-17.5) gm/dL Hct 47.3 (39.0-53.0) % MCV 90.2 (80.0-100.0) fL MCH 31.1 (25.0-35.0) pg MCHC 34.5 (31.0-37.0) g/dL RDW 15.5 (11.5-15.5) % Plt Count 239 (150-450) k/uL Neutrophils % 66 % Lymphocytes % 25 % Monocytes % 6 % Eosinophils % 1 % Basophils % 1 % Neutrophils # 6.3 (1.3-7.7) k/uL Lymphocytes # 2.4 (1.0-4.8) k/uL Monocytes # 0.6 (0-1.0) k/uL Eosinophils # 0.1 (0-0.7) k/uL Basophils # 0.1 (0-0.2) k/uL Sodium 139 (137-145) mmol/L Potassium 4.8 (3.5-5.1) mmol/L Chloride 104 (98-107) mmol/L Carbon Dioxide 20 L (22-30) mmol/L Anion Gap 15 mmol/L BUN 15 (9-20) mg/dL Creatinine 0.80 (0.66-1.25) mg/dL Est GFR (CKD-EPI)AfAm >90 (>60 ml/min/1.73 sqM) Est GFR (CKD-EPI)NonAf >90 (>60 ml/min/1.73 sqM) Glucose 100 H (74-99) mg/dL Calcium 10.0 (8.4-10.2) mg/dL Total Bilirubin 0.8 (0.2-1.3) mg/dL AST 38 (17-59) U/L ALT 32 (21-72) U/L Alkaline Phosphatase 64 (38-126) U/L Troponin I (0.000-0.034) ng/mL Total Protein 8.6 H (6.3-8.2) g/dL Albumin 4.9 (3.5-5.0) g/dL Urine Color Yellow Urine Appearance Clear (Clear) Urine pH 5.0 (5.0-8.0) Ur Specific [place] 1.017 (1.001-1.035) Urine Protein Negative (Negative) Urine Glucose (UA) Negative (Negative) Urine Ketones Negative (Negative) Urine Blood Negative (Negative) Urine Nitrite Negative (Negative) Urine Bilirubin Negative (Negative) Urine Urobilinogen <2.0 (<2.0) mg/dL Ur Leukocyte Esterase Negative (Negative) 12/22/18 Range/Units 13:52 WBC (3.8-10.6) k/uL RBC (4.30-5.90) m/uL Hgb (13.0-17.5) gm/dL Hct (39.0-53.0) % MCV (80.0-100.0) fL MCH (25.0-35.0) pg MCHC (31.0-37.0) g/dL RDW (11.5-15.5) % Plt Count (150-450) k/uL Neutrophils % % Lymphocytes % % Monocytes % % Eosinophils % % Basophils % % Neutrophils # (1.3-7.7) k/uL Lymphocytes # (1.0-4.8) k/uL Monocytes # (0-1.0) k/uL Eosinophils # (0-0.7) k/uL Basophils # (0-0.2) k/uL Sodium (137-145) mmol/L Potassium (3.5-5.1) mmol/L Chloride (98-107) mmol/L Carbon Dioxide (22-30) mmol/L Anion Gap mmol/L BUN (9-20) mg/dL Creatinine (0.66-1.25) mg/dL Est GFR (CKD-EPI)AfAm (>60 ml/min/1.73 sqM) Est GFR (CKD-EPI)NonAf (>60 ml/min/1.73 sqM) Glucose (74-99) mg/dL Calcium (8.4-10.2) mg/dL Total Bilirubin (0.2-1.3) mg/dL AST (17-59) U/L ALT (21-72) U/L Alkaline Phosphatase (38-126) U/L Troponin I <0.012 (0.000-0.034) ng/mL Total Protein (6.3-8.2) g/dL Albumin (3.5-5.0) g/dL Urine Color Urine Appearance (Clear) Urine pH (5.0-8.0) Ur Specific [place] (1.001-1.035) Urine Protein (Negative) Urine Glucose (UA) (Negative) Urine Ketones (Negative) Urine Blood (Negative) Urine Nitrite (Negative) Urine Bilirubin (Negative) Urine Urobilinogen (<2.0) mg/dL Ur Leukocyte Esterase (Negative) Disposition Clinical Impression: Cervical radiculopathy, Lightheadedness Disposition: HOME SELF-CARE Condition: Stable Instructions (If sedation given, give patient instructions): Lightheadedness (ED) Additional Instructions: Please return to the Emergency Department if symptoms worsen or any other concerns. Is patient prescribed a controlled substance at d/c from ED?: No Referrals: Checo Spears MD [Primary Care Provider] - 1-2 days Time of Disposition: 15:18
[2018-12-22 14:27] LABS: ALT 32 U/L (21-72); AST 38 U/L (17-59); African American GFR (CKD) >90 (>60 ml/min/1.73 sqM); Albumin 4.9 g/dL (3.5-5.0); Alkaline Phosphatase 64 U/L (38-126); Anion Gap 15 mmol/L; Blood Urea Nitrogen 15 mg/dL (9-20); Carbon Dioxide 20 mmol/L (22-30); Chloride 104 mmol/L (98-107); Glucose 100 mg/dL (74-99); Sodium 139 mmol/L (137-145); Total Bilirubin 0.8 mg/dL (0.2-1.3); Total Protein 8.6 g/dL (6.3-8.2)
[2018-12-22 14:30] LABS: Appearance,Urine Clear (Clear); Bilirubin,Urine Negative (Negative); Blood,Urine Negative (Negative); Color,Urine Yellow; Glucose,Urine (UA) Negative (Negative); Ketones,Urine Negative (Negative); Leukocyte Esterase,Urine Negative (Negative); Nitrite,Urine Negative (Negative); Protein,Urine Negative (Negative); Specific Gravity,Urine 1.017 (1.001-1.035); Urobilinogen,Urine <2.0 mg/dL (<2.0)
[2018-12-22 14:30] LABS: Potassium 4.8 mmol/L (3.5-5.1)
--- NOTE | 2018-12-22 14:31 | CT ---
EXAMINATION TYPE: CT brain yannick wo con DATE OF EXAM: 12/22/2018 COMPARISON: CT brain 11/15/2019 HISTORY: Headache, neck pain and dizziness CT DLP: 1544.5 mGycm, Automated exposure control for dose reduction was used. CONTRAST: Patient injected with 0 mL of Isovue 300. CT of the brain is performed utilizing 3 mm thick sections through the posterior fossa and 3 mm thick sections through the remaining calvarium. Study is performed within 24 hours of arrival to the hospital. No abnormal hyperdensity is present to suggest an acute intracranial hemorrhage. No mass lesion is evident. No acute infarcts are evident. Ventricles and sulci are appropriate for the patient age. Paranasal sinuses and mastoid air cells within the [id number] are clear. IMPRESSIONS: 1. No acute intracranial process. CT cervical spine. COMPARISON: None CT of the cervical spine is performed in the axial plane at 2 mm thick sections. Reconstructed image s in the coronal, and sagittal plane are reviewed on the computer. No acute fractures are evident. Vertebral body alignment is normal. Disc heights are preserved. Vertebral body heights are preserved. No spinal canal stenosis is evident. No neural foraminal stenosis is evident. IMPRESSIONS: 1. Normal CT cervical spine.
[2018-12-22 14:50] LABS: Basophils # (A) 0.1 k/uL (0-0.2); Basophils % (A) 1 %; Eosinophils # (A) 0.1 k/uL (0-0.7); Eosinophils % (A) 1 %; HCT 47.3 % (39.0-53.0); HGB 16.3 gm/dL (13.0-17.5); Lymphocytes # (A) 2.4 k/uL (1.0-4.8); Lymphocytes % (A) 25 %; MCH 31.1 pg (25.0-35.0); MCHC 34.5 g/dL (31.0-37.0); MCV 90.2 fL (80.0-100.0); Mean Platelet Volume 7.5; Monocytes # (A) 0.6 k/uL (0-1.0); Monocytes % (A) 6 %; Neutrophils # (A) 6.3 k/uL (1.3-7.7); Neutrophils % (A) 66 %; Platelet Count 239 k/uL (150-450); RBC 5.25 m/uL (4.30-5.90); RDW 15.5 % (11.5-15.5); WBC 9.6 k/uL (3.8-10.6)
[2018-12-22 15:32] VITALS: BP 128/73; PULSE 79; TEMP 98
== END 2018-12-22 15:31 | disposition home or self-care (01) ==
LOC: EC 12:34
DX: M54.12 Radiculopathy, cervical region (principal); R42 Dizziness and giddiness; I10 Essential (primary) hypertension; F17.200 Nicotine dependence, unspecified, uncomplicated; Z79.899 Other long term (current) drug therapy
CPT/HCPCS: 36415; 70450; 72125; 80053; 81003; 84484; 85025; 93005; 99285

== ENCOUNTER → 2019-05-31 | Outpatient (CLI) | payer BC ==
--- NOTE | 2019-06-01 08:29 | XR ---
EXAMINATION TYPE: XR chest 2V DATE OF EXAM: 05/31/2019 COMPARISON: Prior chest x-ray 03/03/2015 HISTORY: Pneumonia TECHNIQUE: Frontal and lateral views of the chest are obtained. FINDINGS: There is no focal air space opacity, pleural effusion, or pneumothorax seen. The cardiac silhouette size is within normal limits. The osseous structures are intact, thoracic spinal curvatu re is noted. IMPRESSION: No acute cardiopulmonary process.
== END | disposition home or self-care (01) ==
LOC: RADXRMAIN 19:30
PROVIDERS: ATTEND Pediatrics
DX: J18.9 Pneumonia, unspecified organism (principal)
CPT/HCPCS: 71046

== ENCOUNTER 2020-05-11 19:00 | Observation (INO) | payer BC ==
[2020-05-11 19:16] VITALS: RESP 16
[2020-05-11] MEDS ORDERED: ASPIRIN 81 MG PO STA (19:20)
[2020-05-11] MEDS ORDERED: SODIUM CHLORIDE 0.9% 500 ML 500 ML IV STA (19:20)
--- NOTE | 2020-05-11 19:25 | ED ---
General Adult HPI - General Chief complaint: Chest Pain Stated complaint: Chest Pain Time Seen by Provider: 05/11/20 19:15 Source: patient Mode of arrival: wheelchair Limitations: no limitations - History of Present Illness Initial comments: 44-year-old male patient presents to the emergency department today for evaluation of chest pain and left arm numbness. Patient states that symptoms started around 5:30 this evening while sitting and watching television. States that he had sharp pain to his left side of his chest that worsened when he took a deep breath. States it lasted approximately 20 minutes and then resolved. States that he did have the arm symptoms during the episode of chest pain. Denies any significant shortness of breath, nausea, or vomiting. Denies abdominal pain. Denies dizziness or weakness. Patient does have history sig nificant for hypertension and has been a longtime tobacco user. Mother has a history of coronary artery disease with first heart attack in her early 40s. Denies any leg pain or swelling. Did drive to and from [place] over the last 3 days. Patient states that his best friend recently from a myocardial infarction so he is more concerned and aware of his symptoms. Patient denies any recent rash, fever, chills, cough, diarrhea, constipation, back pain, numbness, tingling, hematuria, dysuria, urinary urgency, urinary frequency, headache, visual changes, or any other complaints. - Related Data Home Medications Medication Instructions Recorded Confirmed Ibuprofen [Motrin] 800 mg PO TID PRN 12/22/18 05/11/20 Losartan [Cozaar] 50 mg PO DAILY 05/11/20 05/11/20 Omeprazole Magnesium [PriLOSEC OTC] 20 mg PO DAILY 05/11/20 05/11/20 hydroCHLOROthiazide [Hydrodiuril] 12.5 mg PO DAILY 05/11/20 05/11/20 Allergies Allergy/AdvReac Type Severity Reaction Status Date / Time No Known Allergies Allergy Verified 05/11/20 20:11 Review of Systems ROS Statement: Those systems with pertinent positive or pertinent negative responses have been documented in the HPI. ROS Other: All systems not noted in ROS Statement are negative. Past Medical History Past Medical History: Hypertension Additional Past Medical History / Comment(s): kidney stones History of Any Multi-Drug Resistant Organisms: None Reported Past Surgical History: Orthopedic Surgery Additional Past Surgical History / Comment(s): right sided shoulder replacement, kidney stone removal. Past Psychological History: No Psychological Hx Reported Smoking Status: Current every day smoker Past Alcohol Use History: Rare Past Drug Use History: None Reported General Exam Limitations: no limitations General appearance: alert, in no apparent distress, other (This is a well- developed, well-nourished adult male patient in no acute distress. Vital signs upon presentation are temperature 97.8F, pulse 90, respirations 16, blood pressure 146/94, pulse ox 98% on room air.) Eye exam: Present: normal appearance, PERRL, EOMI. Absent: scleral icterus, conjunctival injection, periorbital swelling ENT exam: Present: normal exam, normal oropharynx, mucous membranes moist Respiratory exam: Present: normal lung sounds bilaterally. Absent: respiratory distress, wheezes, rales, rhonchi, stridor Cardiovascular Exam: Present: regular rate, normal rhythm, normal heart sounds. Absent: systolic murmur, diastolic murmur, rubs, gallop, clicks GI/Abdominal exam: Present: soft, normal bowel sounds. Absent: distended, tenderness, guarding, rebound, rigid Extremities exam: Present: normal inspection, full ROM, normal capillary refill, other (Radial pulses 2+ and equal bilaterally.). Absent: tenderness, pedal edema, joint swelling, calf tenderness Neurological exam: Present: alert, oriented X3, CN II-XII intact Psychiatric exam: Present: normal affect, normal mood Skin exam: Present: warm, dry, intact, normal color. Absent: rash Course Vital Signs 05/11/20 05/11/20 19:08 20:16 Temperature 97.8 F Pulse Rate 90 88 Respiratory 16 16 Rate Blood Pressure 146/94 125/83 O2 Sat by Pulse 98 97 Oximetry EKG Findings - EKG Comments: EKG Findings:: EKG obtained in 1908 shows sinus tachycardia with a ventricular rate of 109, TX interval 160, QRS duration 94, QT 356, QTc 479. No evidence of ST elevation or depression Medical Decision Making - Medical Decision Making 44-year-old male patient presents to the emergency department today for evaluation of left-sided chest pain with radiation down the left arm. Patient denies any shortness of breath, nausea, vomiting, or sweats. Physical examination did reveal clear equal lung sounds. Abdomen soft and nontender. EKG showed normal sinus rhythm with no ST elevation or depression. Initial labs are unremarkable. Given patient's history of chronic tobacco use, hypertension, family history of coronary artery disease will admit to the hospital for serial troponins and further evaluation by cardiology in the morning. Dr. Garcia is accepting. Case discussed with my attending Dr. Fenton. - Lab Data Result diagrams: 05/11/20 19:27 05/11/20 19:27 Lab Results 05/11/20 05/11/20 05/11/20 Range/Units 19:27 19:27 19:27 WBC 8.6 (3.8-10.6) k/uL RBC 5.50 (4.30-5.90) m/uL Hgb 17.1 (13.0-17.5) gm/dL Hct 49.7 (39.0-53.0) % MCV 90.3 (80.0-100.0) fL MCH 31.1 (25.0-35.0) pg MCHC 34.5 (31.0-37.0) g/dL RDW 13.1 (11.5-15.5) % Plt Count 199 (150-450) k/uL MPV 7.4 Neutrophils % 58 % Lymphocytes % 33 % Monocytes % 5 % Eosinophils % 1 % Basophils % 1 % Neutrophils # 5.0 (1.3-7.7) k/uL Lymphocytes # 2.8 (1.0-4.8) k/uL Monocytes # 0.5 (0-1.0) k/uL Eosinophils # 0.1 (0-0.7) k/uL Basophils # 0.1 (0-0.2) k/uL PT 9.8 (9.0-12.0) sec INR 0.9 (<1.2) APTT 24.4 (22.0-30.0) sec D-Dimer 0.21 (<0.60) mg/L FEU Sodium 137 (137-145) mmol/L Potassium 3.7 (3.5-5.1) mmol/L Chloride 106 (98-107) mmol/L Carbon Dioxide 18 L (22-30) mmol/L Anion Gap 13 mmol/L BUN 16 (9-20) mg/dL Creatinine 0.81 (0.66-1.25) mg/dL Est GFR (CKD-EPI)AfAm >90 (>60 ml/min/1.73 sqM) Est GFR (CKD-EPI)NonAf >90 (>60 ml/min/1.73 sqM) Glucose 108 H (74-99) mg/dL Calcium 9.6 (8.4-10.2) mg/dL Magnesium 1.9 (1.6-2.3) mg/dL Total Bilirubin 0.5 (0.2-1.3) mg/dL AST 29 (17-59) U/L ALT 24 (4-49) U/L Alkaline Phosphatase 76 (38-126) U/L Troponin I (0.000-0.034) ng/mL Total Protein 7.8 (6.3-8.2) g/dL Albumin 4.5 (3.5-5.0) g/dL TSH 2.670 (0.465-4.680) mIU/L 05/11/20 Range/Units 19:27 WBC (3.8-10.6) k/uL RBC (4.30-5.90) m/uL Hgb (13.0-17.5) gm/dL Hct (39.0-53.0) % MCV (80.0-100.0) fL MCH (25.0-35.0) pg MCHC (31.0-37.0) g/dL RDW (11.5-15.5) % Plt Count (150-450) k/uL MPV Neutrophils % % Lymphocytes % % Monocytes % % Eosinophils % % Basophils % % Neutrophils # (1.3-7.7) k/uL Lymphocytes # (1.0-4.8) k/uL Monocytes # (0-1.0) k/uL Eosinophils # (0-0.7) k/uL Basophils # (0-0.2) k/uL PT (9.0-12.0) sec INR (<1.2) APTT (22.0-30.0) sec D-Dimer (<0.60) mg/L FEU Sodium (137-145) mmol/L Potassium (3.5-5.1) mmol/L Chloride (98-107) mmol/L Carbon Dioxide (22-30) mmol/L Anion Gap mmol/L BUN (9-20) mg/dL Creatinine (0.66-1.25) mg/dL Est GFR (CKD-EPI)AfAm (>60 ml/min/1.73 sqM) Est GFR (CKD-EPI)NonAf (>60 ml/min/1.73 sqM) Glucose (74-99) mg/dL Calcium (8.4-10.2) mg/dL Magnesium (1.6-2.3) mg/dL Total Bilirubin (0.2-1.3) mg/dL AST (17-59) U/L ALT (4-49) U/L Alkaline Phosphatase (38-126) U/L Troponin I <0.012 (0.000-0.034) ng/mL Total Protein (6.3-8.2) g/dL Albumin (3.5-5.0) g/dL TSH (0.465-4.680) mIU/L - Radiology Data Radiology results: report reviewed, image reviewed Two-view x-ray of the chest is obtained. Report reviewed in its entirety. Impression by Dr. Moore shows normal chest. No change. Disposition Clinical Impression: Chest pain Disposition: ADMITTED IP TO THIS [facility] Condition: Serious Referrals: Checo Spears MD [Primary Care Provider] - 1-2 days Decision to Admit Reason: Admit from EC Decision Date: 05/11/20 Decision Time: 20:58
[2020-05-11 19:48] LABS: Basophils # (A) 0.1 k/uL (0-0.2); Basophils % (A) 1 %; Eosinophils # (A) 0.1 k/uL (0-0.7); Eosinophils % (A) 1 %; HCT 49.7 % (39.0-53.0); HGB 17.1 gm/dL (13.0-17.5); Lymphocytes # (A) 2.8 k/uL (1.0-4.8); Lymphocytes % (A) 33 %; MCH 31.1 pg (25.0-35.0); MCHC 34.5 g/dL (31.0-37.0); MCV 90.3 fL (80.0-100.0); Mean Platelet Volume 7.4; Monocytes # (A) 0.5 k/uL (0-1.0); Monocytes % (A) 5 %; Neutrophils % (A) 58 %; Platelet Count 199 k/uL (150-450); RDW 13.1 % (11.5-15.5); WBC 8.6 k/uL (3.8-10.6)
--- NOTE | 2020-05-11 19:51 | XR ---
EXAMINATION TYPE: XR chest 2V DATE OF EXAM: 05/11/2020 COMPARISON: 05/31/2019 HISTORY: Pneumonia TECHNIQUE: 2 views FINDINGS: Heart and mediastinum are normal. Lungs are clear. Diaphragm is normal. Bony thorax appears normal. Pulmonary vascularity is normal. There are chest leads. IMPRESSION: Normal chest. No change.
[2020-05-11 20:07] LABS: D-Dimer 0.21 mg/L FEU (<0.60); INR 0.9 (<1.2); Partial Thromboplastin Time 24.4 sec (22.0-30.0); Prothrombin Time 9.8 sec (9.0-12.0)
[2020-05-11 20:16] LABS: ALT 24 U/L (4-49); AST 29 U/L (17-59); African American GFR (CKD) >90 (>60 ml/min/1.73 sqM); Albumin 4.5 g/dL (3.5-5.0); Alkaline Phosphatase 76 U/L (38-126); Anion Gap 13 mmol/L; Blood Urea Nitrogen 16 mg/dL (9-20); Calcium 9.6 mg/dL (8.4-10.2); Carbon Dioxide 18 mmol/L (22-30); Chloride 106 mmol/L (98-107); Glucose 108 mg/dL (74-99); Magnesium 1.9 mg/dL (1.6-2.3); Non-African American GFR(CKD) >90 (>60 ml/min/1.73 sqM); Potassium 3.7 mmol/L (3.5-5.1); Sodium 137 mmol/L (137-145); Total Bilirubin 0.5 mg/dL (0.2-1.3); Total Protein 7.8 g/dL (6.3-8.2)
[2020-05-11] MEDS ORDERED: ONDANSETRON 4 MG/2 ML VIAL IVP PRN (21:00)
[2020-05-11] MEDS ORDERED: NALOXONE 0.4 MG/ML 1 ML VIAL IV PRN (21:00)
[2020-05-11] MEDS ORDERED: MORPHINE SULFATE 4 MG/ML SYRINGE IV PRN (21:00)
[2020-05-11] MEDS ORDERED: NITROGLYCERIN SL TABS 0.4 MG TAB SUBLINGUAL PRN (21:02)
[2020-05-12 03:48] LABS: Cholesterol 254 mg/dL (<200); HDL Cholesterol 34 mg/dL (40-60)
[2020-05-12 04:00] LABS: Triglycerides 656 mg/dL (<150)
[2020-05-12] MEDS ORDERED: ASPIRIN 325 MG TAB PO SCH (09:00)
[2020-05-12] MEDS ORDERED: hydroCHLOROthiazide 12.5 MG CAP PO SCH (09:00)
[2020-05-12] MEDS ORDERED: ASPIRIN 81 MG PO SCH (09:00)
[2020-05-12] MEDS ORDERED: LOSARTAN 50 MG TAB PO SCH (09:00)
[2020-05-12 09:13] VITALS: BP 115/69; PULSE 66; TEMP 97.7
--- NOTE | 2020-05-12 09:39 | P.CRDCN ---
History of Present Illness History of present illness: HISTORY OF PRESENTING ILLNESS This is a pleasant 44-year-old male past medical history significant for hypertension, gastroesophageal reflux disease and chronic nicotine dependence. 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 We have been asked to see in consultation for chest pain. He has been experiencing intermittent episodes of chest discomfort in the midsternal region over the previous couple of months. The symptoms are associated with left arm numbness. There is no specific aggravating or alleviating factors. The symptoms occur randomly and last for a few seconds at a time subsiding on their own. Yesterday he was sitting down in his recliner chair when he had an episode of discomfort in the chest and his left arm again became numb. This time he had some lightheaded sensation. He denies associated shortness of breath or palpitations. DIAGNOSTICS EKG reveals sinus tachycardia heart rate 109. Telemetry tracings indicate sinus mechanism with no arrhythmia noted. Chest xray negative for an acute cardiopulmonary process. Laboratory reviewed, CBC unremarkable, d-dimer 0.21, sodium 137, potassium 3.7, creatinine 0.81, magnesium 1.9, cardiac enzymes negative 3, triglycerides 656 and thyroid 2.67. Current cardiac medications include hydrochlorothiazide 12.5 mg daily and losartan 50 mg daily. REVIEW OF SYSTEMS At the time of my exam: CONSTITUTIONAL: Denies fever or chills. CARDIOVASCULAR: Denies chest pain, shortness of breath, orthopnea, PND or palpitations. RESPIRATORY: Denies cough. GASTROINTESTINAL: Denies abdominal pain, diarrhea, constipation, nausea or vomiting. MUSCULOSKELETAL: Denies myalgias. NEUROLOGIC: Denies numbness, tingling, headacbe or weakness. ENDOCRINE: Denies fatigue, weight change, polydipsia or polyurina. GENITOURINARY: Denies burning, hematuria or urgency with micturation. HEMATOLOGIC: Denies history of anemia or bleeding. PHYSICAL EXAMINATION Blood pressure 115/69 heart rate 66 afebrile and maintaining oxygen saturation on room air. CONSTITUTIONAL: No apparent distress. HEENT: Head is normocephalic. Pupils are equal, round. Sclerae anicteric. Mucous membranes of the mouth are moist. No JVD. No carotid bruit. CHEST EXAMINATION: Lungs are clear to auscultation. No chest wall tenderness is noted on palpation or with deep breathing. HEART EXAMINATION: Regular rate and rhythm. S1, S2 heard. No murmurs, gallops or rub. ABDOMEN: Soft, nontender. Positive bowel sounds. EXTREMITIES: 2+ peripheral pulses, no lower extremity edema and no calf te nderness. NEUROLOGIC EXAMINATION: Patient is awake, alert and oriented x3. ASSESSMENT Chest pain Hypertension Chronic nicotine dependence Dyslipidemia Family history of premature coronary artery disease PLAN An acute coronary event has been ruled out. Obtain 2-D echocardiogram and Doppler study to assess cardiac structure and function. Perform stress echocardiogram to assess for stress-induced cardiac ischemia. Recommend tobacco cessation. If stress test is normal he may be discharged from a cardiac perspective. Follow-up in the office with Dr. Vidales in 2 weeks. Thank you kindly for this consultation. Nurse Practitioner note has been reviewed, I agree with a documented findings and plan of care. Patient was seen and examined. Past Medical History Past Medical History: Hypertension Additional Past Medical History / Comment(s): kidney stones History of Any Multi-Drug Resistant Organisms: None Reported Past Surgical History: Orthopedic Surgery Additional Past Surgical History / Comment(s): right sided shoulder replacement, kidney stone removal. Past Psychological History: No Psychological Hx Reported Smoking Status: Current every day smoker Past Alcohol Use History: Rare Past Drug Use History: None Reported Medications and Allergies Home Medications Medication Instructions Recorded Confirmed Type Ibuprofen [Motrin] 800 mg PO TID PRN 12/22/18 05/11/20 History Losartan [Cozaar] 50 mg PO DAILY 05/11/20 05/11/20 History Omeprazole Magnesium [PriLOSEC OTC] 20 mg PO DAILY 05/11/20 05/11/20 History hydroCHLOROthiazide [Hydrodiuril] 12.5 mg PO DAILY 05/11/20 05/11/20 History Allergies Allergy/AdvReac Type Severity Reaction Status Date / Time No Known Allergies Allergy Verified 05/11/20 20:11 Physical Exam Vitals: Vital Signs Temp Pulse Pulse Resp BP BP Pulse Ox 05/12/20 07:09 97 05/12/20 01:35 98.1 F 76 16 114/70 99 05/11/20 22:14 97.7 F 72 144/90 97 05/11/20 21:35 97.8 F 88 16 125/83 97 05/11/20 20:16 88 16 125/83 97 05/11/20 19:08 97.8 F 90 16 146/94 98 Intake and Output 05/11/20 05/12/20 05/12/20 22:59 06:59 14:59 Intake Total 580 Balance 580 Intake: Oral 580 Other: # Voids 1 Weight 97.522 kg Results 05/11/20 19:27 05/11/20 19:27 Cardiac Enzymes 05/11/20 05/11/20 05/11/20 Range/Units 19:27 19:27 22:54 AST 29 (17-59) U/L Troponin I <0.012 <0.012 (0.000-0.034) ng/mL 05/12/20 Range/Units 01:34 AST (17-59) U/L Troponin I <0.012 (0.000-0.034) ng/mL Coagulation 05/11/20 Range/Units 19:27 PT 9.8 (9.0-12.0) sec APTT 24.4 (22.0-30.0) sec Lipids 05/12/20 Range/Units 01:34 Triglycerides 656 H (<150) mg/dL Cholesterol 254 H (<200) mg/dL HDL Cholesterol 34 L (40-60) mg/dL CBC 05/11/20 Range/Units 19:27 WBC 8.6 (3.8-10.6) k/uL RBC 5.50 (4.30-5.90) m/uL Hgb 17.1 (13.0-17.5) gm/dL Hct 49.7 (39.0-53.0) % Plt Count 199 (150-450) k/uL Comprehensive Metabolic Panel 05/11/20 Range/Units 19:27 Sodium 137 (137-145) mmol/L Potassium 3.7 (3.5-5.1) mmol/L Chloride 106 (98-107) mmol/L Carbon Dioxide 18 L (22-30) mmol/L BUN 16 (9-20) mg/dL Creatinine 0.81 (0.66-1.25) mg/dL Glucose 108 H (74-99) mg/dL Calcium 9.6 (8.4-10.2) mg/dL AST 29 (17-59) U/L ALT 24 (4-49) U/L Alkaline Phosphatase 76 (38-126) U/L Total Protein 7.8 (6.3-8.2) g/dL Albumin 4.5 (3.5-5.0) g/dL Current Medications Generic Name Dose Route Start Last Admin Trade Name Rayshawnq PRN Reason Stop Dose Admin Aspirin 325 mg 05/12/20 09:00 Aspirin 325 Mg Tab PO DAILY JOELLEN Morphine Sulfate 4 mg 05/11/20 21:00 Morphine Sulfate 4 Mg/Ml Syringe IV Q4HR PRN Severe Pain Naloxone HCl 0.2 mg 05/11/20 21:00 Naloxone 0.4 Mg/Ml 1 Ml Vial IV Q2M PRN Opioid Reversal Nitroglycerin 0.4 mg 05/11/20 21:02 Nitroglycerin Sl Tabs 0.4 Mg Tab SUBLINGUAL Q5M PRN Chest Pain Ondansetron HCl 4 mg 05/11/20 21:00 Ondansetron 4 Mg/2 Ml Vial IVP Q8HR PRN Nausea And Vomiting Intake and Output 05/11/20 05/12/20 05/12/20 22:59 06:59 14:59 Intake Total 580 Balance 580 Intake: Oral 580 Other: # Voids 1 Weight 97.522 kg 05/11/20 19:27 05/11/20 19:27
--- NOTE | 2020-05-12 12:01 | ECHOF ---
Referral Reason:cp MEASUREMENTS -------- HEIGHT: 152.4 cm WEIGHT: 97.5 kg BP: RVIDd: 3.1 cm (< 3.3) IVSd: 1.2 cm (0.6 - 1.1) LVIDd: 4.0 cm (3.9 - 5.3) LVPWd: 1.3 cm (0.6 - 1.1) IVSs: 1.5 cm LVIDs: 2.2 cm LVPWs: 1.5 cm LA Diam: 3.7 cm (2.7 - 3.8) LAESV Index (A-L): 18.05 ml/m Ao Diam: 3.4 cm (2.0 - 3.7) AV Cusp: 1.9 cm (1.5 - 2.6) MV EXCURSION: 16.920 mm (> 18.000) MV EF SLOPE: 88 mm/s (70 - 150) EPSS: 0.4 cm MV E Serjio: 0.66 m/s MV DecT: 192 ms MV A Serjio: 0.87 m/s MV E/A Ratio: 0.76 RAP: 5.00 mmHg RVSP: 15.50 mmHg FINDINGS -------- Sinus rhythm. This was a technically adequate study. The left ventricular size is normal. There is mild concentric left ventricular hypertrophy. Overa ll left ventricular systolic function is normal with, an EF between 55 - 60 %. The right ventricle is normal in size. Normal LA size by volume 22+/-6 ml/m2. The right atrial size is normal. The aortic valve is trileaflet, and appears structurally normal. No aortic stenosis or regurgitation. The mitral valve is normal. Mild mitral regurgitation is present. The tricuspid valve appears structurally normal. Mild tricuspid regurgitation present. Right vent ricular systolic pressure is normal at < 35 mmHg. There is no pulmonic regurgitation present. The aortic root size is normal. There is no pericardial effusion. CONCLUSIONS -------- 1. There is mild concentric left ventricular hypertrophy. 2. Overall left ventricular systolic function is normal with, an EF between 55 - 60 %. 3. Normal LA size by volume 22+/-6 ml/m2. 4. The right atrial size is normal. 5. The aortic valve is trileaflet, and appears structurally normal. No aortic stenosis or regurgitati on. 6. Mild mitral regurgitation is present. 7. Mild tricuspid regurgitation present. 8. There is no pericardial effusion. ADMISSION NURSE COORDINATOR: Heaven Doran RDCS
--- NOTE | 2020-05-12 12:41 | ECHOS ---
STRESS ECHOCARDIOGRAM LUMASON: N/A Vial INDICATIONS: Chest pain MEDICATIONS: BASELINE HEART RATE: 68 BASELINE BLOOD PRESSURE: 113/81 MAXIMUM HEART RATE: 166 MAXIMUM BLOOD PRESSURE: 209/97 85% MPHR: 150 100% MPHR: 176 METS: 12.1 MAXIMUM STAGE REACHED: 4 TOTAL EXERCISE TIME: 12 minutes CLINICAL INFORMATION: Baseline rhythm is a sinus mechanism, rate of 68, normal axis and intervals, cannot exclude inferior myocardial infarction. Baseline blood pressure 113/81 mmHg. Patient exercised on Kin protocol for 12 minutes reaching peak rate 166 beats per minute which is equal to 94% maximum predicted heart rate. Peak blood pressure 209/97 mmHg. Test was terminated secondary to fatigue. There was no chest pain. Electrocardiograph monitoring revealed no evidence of diagnostic ischemic ST deviation. Rare PVCs were noted. Baseline echocardiogram revealed normal wall motion. At peak exercise, there was normal wall motion augmentation with no hypokinesis or dyskinesis. CONCLUSION: 1. Good exercise tolerance with normal electrocardiograph response to exercise. 2. Normal stress echocardiogram with no evidence of stress-induced ischemia. MMODL / IJN: [id number] /
--- NOTE | 2020-05-12 23:16 | P.HPIM ---
History of Present Illness H&P Date: 05/12/20 Chief Complaint: Chest discomfort History of presenting complaint: This is a pleasant 44-year-old patient of Dr. Steve Spears. Chronic stable medical conditions include hypertension, GERD, nicotine dependence. Patient for a few months has had some slight chest discomfort off and on. He is having some stress at home from 3 daughters and also some with his . Which he considers just normal family stress. On this occasion he developed some pain below the left clavicle into the left arm. Left arm felt a bit numb. This has been present on and off. Not sleeping well. Snore sometimes. Appetite is good. No fever no chills. No respiratory symptoms. Chest pain is not present with any exertion. 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 Alcohol rarely. Denies use of recreational drugs. Family history: Some family member of heart disease Physical examination: VITAL SIGNS: 97.7, 66, 16, 115/69, 96% room air GENERAL: BMI 30.8, sitting up, comfortable. EYES: Pupils equal. Conjunctiva normal. HEENT: External appearance of nose and ears normal, oral cavity grossly normal. NECK: JVD not raised; masses not palpable. HEART: First and second heart sounds are normal; no edema. LUNGS: Respiratory rate normal; clear to auscultation. ABDOMEN: Soft, nontender, liver spleen not palpable, no masses palpable. PSYCH: Alert and oriented x3; mood and affect normal. NEUROLOGICAL: Cranial nerves grossly intact; no facial asymmetry, power and sensation grossly intact. LYMPHATICS: No lymph nodes palpable in the axilla and neck INVESTIGATIONS, reviewed in the clinical context: White count 8.6 hemoglobin 17.1 platelets 199 potassium 3.7 creatinine 0.81 Troponin I 3 negative Trichomoniasis distress 656 total cholesterol 254 HDL 34 TSH 2.6 Coronavirus [PCR]-not detected EKG tracing personally reviewed by me-normal sinus rhythm Assessment and plan: -This is a patient is had some chest discomfort on and off for some time. Not related to exertion. Patient's cardiac risk factors include hypertension, smoking. He to rule out a cardiac cause. Cardiology consulted. Daughter the stress test. -Essential hypertension-continue Cozaar -Social stressors -Chronic insomnia from social stressors, light melatonin -GERD, continue psych -Chronic nicotine dependence patient cigarette smoker-year nicotine patch Smoke cessation counseling: This was done with the patient. Nicotine patch is being given. More than 3 minutes was spent for this Past Medical History Past Medical History: Hypertension Additional Past Medical History / Comment(s): kidney stones History of Any Multi-Drug Resistant Organisms: None Reported Past Surgical History: Orthopedic Surgery Additional Past Surgical History / Comment(s): right sided shoulder replacement, kidney stone removal. Past Psychological History: No Psychological Hx Reported Smoking Status: Current every day smoker Past Alcohol Use History: Rare Past Drug Use History: None Reported Medications and Allergies Home Medications Medication Instructions Recorded Confirmed Type Ibuprofen [Motrin] 800 mg PO TID PRN 12/22/18 05/11/20 History Losartan [Cozaar] 50 mg PO DAILY 05/11/20 05/11/20 History Omeprazole Magnesium [PriLOSEC OTC] 20 mg PO DAILY 05/11/20 05/11/20 History Aspirin 81 mg PO DAILY chew 05/12/20 Rx Chlorthalidone 25 mg PO DAILY #30 tab 05/12/20 Rx Melatonin 1 mg PO HS #30 tablet 05/12/20 Rx Nicotine 21Mg/24Hr Patch [Habitrol] 1 each TRANSDERM DAILY #14 patch 05/12/20 Rx Allergies Allergy/AdvReac Type Severity Reaction Status Date / Time No Known Allergies Allergy Verified 05/11/20 20:11 Physical Exam Vitals: Vital Signs Temp Pulse Pulse Resp BP BP Pulse Ox 05/12/20 08:21 97.7 F 66 16 115/69 96 05/12/20 08:00 66 16 05/12/20 07:09 97 05/12/20 01:35 98.1 F 76 16 114/70 99 05/11/20 22:14 97.7 F 72 144/90 97 05/11/20 21:35 97.8 F 88 16 125/83 97 05/11/20 20:16 88 16 125/83 97 05/11/20 19:08 97.8 F 90 16 146/94 98 Intake and Output 05/11/20 05/12/20 05/12/20 22:59 06:59 14:59 Intake Total 580 Balance 580 Intake: Oral 580 Other: Voiding Method Toilet # Voids 1 Weight 97.522 kg Results CBC & Chem 7: 05/11/20 19:27 05/11/20 19:27 Labs: Abnormal Lab Results - Last 24 Hours (Table) 05/11/20 05/12/20 Range/Units 19:27 01:34 Carbon Dioxide 18 L (22-30) mmol/L Glucose 108 H (74-99) mg/dL Triglycerides 656 H (<150) mg/dL Cholesterol 254 H (<200) mg/dL HDL Cholesterol 34 L (40-60) mg/dL Thrombosis Risk Factor Assmnt - Choose All That Apply Each Factor Represents 1 point: Obesity (BMI >25) Thrombosis Risk Factor Assessment Total Risk Factor Score: 1 Thrombosis Risk Factor Assessment Level: Low Risk
--- NOTE | 2020-05-12 23:20 | P.DS ---
Providers Date of admission: 05/11/20 21:07 Expected date of discharge: 05/12/20 Attending physician: Casey Garcia Consults: 05/11/20 21:01 Consult Physician Routine Consulting Provider: [facility] Consult Reason/Comments: Chest Pain Do you want consulting provider notified?: Yes Primary care physician: Checo Spears [facility] Course: Chief Complaint: Chest discomfort History of presenting complaint: This is a pleasant 44-year-old patient of Dr. Steve Spears. Chronic stable medical conditions include hypertension, GERD, nicotine dependence. Patient for a few months has had some slight chest discomfort off and on. He is having some stress at home from 3 daughters and also some with his . Which he considers just normal family stress. On this occasion he developed some pain below the left clavicle into the left arm. Left arm felt a bit numb. This has been present on and off. Not sleeping well. Snore sometimes. Appetite is good. No fever no chills. No respiratory symptoms. Chest pain is not present with any exertion. Troponins were negative. Negative stress echocardiogram. Patient does not sleep well. Symptoms are felt to be psychosomatic from family stressors. Counseled about smoking. Lifestyle measures. Lipitor added. Consultation: Dr. 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 Alcohol rarely. Denies use of recreational drugs. Family history: Some family member of heart disease Physical examination: VITAL SIGNS: 97.7, sutures 6, 16, 115/69, 96% room air GENERAL: BMI 30.8, sitting up, comfortable. EYES: Pupils equal. Conjunctiva normal. HEENT: External appearance of nose and ears normal, oral cavity grossly normal. NECK: JVD not raised; masses not palpable. HEART: First and second heart sounds are normal; no edema. LUNGS: Respiratory rate normal; clear to auscultation. ABDOMEN: Soft, nontender, liver spleen not palpable, no masses palpable. PSYCH: Alert and oriented x3; mood and affect normal. INVESTIGATIONS, reviewed in the clinical context: White count 8.6 hemoglobin 17.1 platelets 199 potassium 3.7 creatinine 0.81 Troponin I 3 negative Trichomoniasis distress 656 total cholesterol 254 HDL 34 TSH 2.6 Coronavirus [PCR]-not detected EKG tracing personally reviewed by me-normal sinus rhythm 2-D echocardiogram-a 55-60% Stress echocardiogram-negative for ischemia Assessment and plan: -Chest pain possibly psychosomatic. -Essential hypertension-continue Cozaar -Social stressors -Chronic insomnia from social stressors, start melatonin -GERD, continue Prilosec -Chronic nicotine dependence patient cigarette smoker- nicotine patch -Hyperlipidemia-start Lipitor Disposition: Home Patient Condition at Discharge: Stable Plan - Discharge Summary New Discharge Prescriptions: New Aspirin 81 mg PO DAILY chew Chlorthalidone 25 mg PO DAILY #30 tab Nicotine 21Mg/24Hr Patch [Habitrol] 1 each TRANSDERM DAILY #14 patch Melatonin 1 mg PO HS #30 tablet Continue Ibuprofen [Motrin] 800 mg PO TID PRN PRN Reason: Pain Losartan [Cozaar] 50 mg PO DAILY Omeprazole Magnesium [PriLOSEC OTC] 20 mg PO DAILY Discontinued hydroCHLOROthiazide [Hydrodiuril] 12.5 mg PO DAILY Discharge Medication List Ibuprofen [Motrin] 800 mg PO TID PRN 12/22/18 [History] Losartan [Cozaar] 50 mg PO DAILY 05/11/20 [History] Omeprazole Magnesium [PriLOSEC OTC] 20 mg PO DAILY 05/11/20 [History] Aspirin 81 mg PO DAILY chew 05/12/20 [Rx] Chlorthalidone 25 mg PO DAILY #30 tab 05/12/20 [Rx] Melatonin 1 mg PO HS #30 tablet 05/12/20 [Rx] Nicotine 21Mg/24Hr Patch [Habitrol] 1 each TRANSDERM DAILY #14 patch 05/12/20 [Rx] Follow up Appointment(s)/Referral(s): Ingrid Vidales MD [STAFF PHYSICIAN] - 1 Week (office will call patient at home with appointment.) Checo Spears MD [Primary Care Provider] - 1-2 days
== END 2020-05-12 13:46 ==
LOC: EC 19:00 → 6NMEDSUR 21:07
PROVIDERS: ADMIT Hospitalist; ATTEND Hospitalist
DX: R07.89 Other chest pain (principal); R42 Dizziness and giddiness; R00.0 Tachycardia, unspecified; R20.0 Anesthesia of skin; I10 Essential (primary) hypertension; F51.04 Psychophysiologic insomnia; Z63.8 Other specified problems related to primary support group; K21.9 Gastro-esophageal reflux disease without esophagitis; E78.5 Hyperlipidemia, unspecified; F17.210 Nicotine dependence, cigarettes, uncomplicated; E66.9 Obesity, unspecified; Z68.30 Body mass index [BMI] 30.0-30.9, adult; Z79.82 Long term (current) use of aspirin; Z79.899 Other long term (current) drug therapy; Z79.1 Long term (current) use of non-steroidal anti-inflammatories (NSAID); Z87.442 Personal history of urinary calculi; Z96.619 Presence of unspecified artificial shoulder joint; Z82.49 Family history of ischemic heart disease and other diseases of the circulatory system; Z20.822 Contact with and (suspected) exposure to COVID-19
CPT/HCPCS: 93005 ×2; 96360; 96361; 99285; 36415; 94760; 93306; 93351; 85379; 80061; 80053; 84443; 83735; 84484 ×2; 85025; 85610; 85730; 87635; 71046; G0378 ×2

== ENCOUNTER 2020-05-13 21:21 | Emergency (ER) | payer BC ==
[2020-05-13 21:29] VITALS: RESP 18
--- NOTE | 2020-05-13 21:43 | ED ---
General Adult HPI - General Chief complaint: Chest Pain Stated complaint: Chest pain, revisit Source: patient Mode of arrival: ambulatory Limitations: no limitations - History of Present Illness Initial comments: 44-year-old male with a past medical history of hypertension, GERD, smoker presents to the emergency room for a chief complaint of chest pain. Patient reports he has had chest tightness on and off for months. States it comes and goes. Patient denies this worsening with exertion. Denies nausea or diaphoresis or shortness of breath associated with this tightness. Patient was recently admitted to the hospital and discharged yesterday for this. Patient had an echo that showed mild left ventricular hypertrophy with an ejection fraction between 55-60%. Stress echo revealed good exercise tolerance, normal stress test. Patient reports that he was put on medications for his cholesterol. He saw his doctor today and told the tightness is still ongoing. He started him on BuSpar however he has not taken it yet. Patient also reports his left arm is tingling now and then. States it has been ongoing for months as well. States he sometimes has neck pain with this. Patient reports his doctor's ordering an EMG for this. Patient has no other complaints at this time including shortness of breath, abdominal pain, nausea or vomiting, headache, or visual changes. - Related Data Home Medications Medication Instructions Recorded Confirmed Ibuprofen [Motrin] 800 mg PO TID PRN 12/22/18 05/11/20 Losartan [Cozaar] 50 mg PO DAILY 05/11/20 05/11/20 Omeprazole Magnesium [PriLOSEC OTC] 20 mg PO DAILY 05/11/20 05/11/20 Previous Rx's Medication Instructions Recorded Aspirin 81 mg PO DAILY chew 05/12/20 Atorvastatin Calcium [Lipitor] 20 mg PO HS #30 tab 05/12/20 Chlorthalidone 25 mg PO DAILY #30 tab 05/12/20 Melatonin 1 mg PO HS #30 tablet 05/12/20 Nicotine 21Mg/24Hr Patch [Habitrol] 1 each TRANSDERM DAILY #14 patch 05/12/20 Allergies Allergy/AdvReac Type Severity Reaction Status Date / Time No Known Allergies Allergy Verified 05/13/20 21:29 Review of Systems ROS Statement: Those systems with pertinent positive or pertinent negative responses have been documented in the HPI. ROS Other: All systems not noted in ROS Statement are negative. Past Medical History Past Medical History: Hypertension Additional Past Medical History / Comment(s): kidney stones History of Any Multi-Drug Resistant Organisms: None Reported Past Surgical History: Orthopedic Surgery Additional Past Surgical History / Comment(s): right sided shoulder replacement, kidney stone removal. Past Psychological History: No Psychological Hx Reported Smoking Status: Current every day smoker Past Alcohol Use History: Rare Past Drug Use History: None Reported General Exam Limitations: no limitations General appearance: alert, in no apparent distress Head exam: Present: atraumatic Eye exam: Present: normal appearance, PERRL, EOMI. Absent: scleral icterus ENT exam: Present: normal exam, mucous membranes moist Neck exam: Present: normal inspection, full ROM. Absent: tenderness, meningis mus, lymphadenopathy Respiratory exam: Present: normal lung sounds bilaterally. Absent: respiratory distress, wheezes Cardiovascular Exam: Present: regular rate, normal rhythm, normal heart sounds GI/Abdominal exam: Present: soft, normal bowel sounds. Absent: distended, tenderness, guarding, rebound, rigid Extremities exam: Present: other (Radial pulses 2+ in upper extremities bilaterally) Course Vital Signs 05/13/20 05/14/20 21:24 00:31 Temperature 98.4 F 97.7 F Pulse Rate 84 80 Respiratory 18 18 Rate Blood Pressure 158/90 131/81 O2 Sat by Pulse 99 96 Oximetry EKG Findings - EKG Comments: EKG Findings:: Normal sinus rhythm, ventricular rate 77, ND interval 162, QTc 441 Medical Decision Making - Medical Decision Making vitals are stable. EKG was compared to previous EKG from a few days ago, no acute changes. Nonischemic. CBC CMP unremarkable. Troponin negative. D-dimer normal. Chest x-ray shows a normal chest. I did reevaluate patient and he has minimal symptoms at this time. I did offer readmission for repeat cardiology consultation however patient prefers to go home and try the BuSpar to see if that helps. I discussed the left hand numbness as an intermittent for months. He says that this could be a paresthesia. He will follow up with his doctor as scheduled for EMG. He will return for any worsening symptoms occur discussed with him. - Lab Data Result diagrams: 05/13/20 22:00 05/13/20 22:00 Lab Results 05/13/20 05/13/20 05/13/20 Range/Units 22:00 22:00 22:00 WBC 9.4 (3.8-10.6) k/uL RBC 5.59 (4.30-5.90) m/uL Hgb 17.8 H (13.0-17.5) gm/dL Hct 50.0 (39.0-53.0) % MCV 89.5 (80.0-100.0) fL MCH 31.9 (25.0-35.0) pg MCHC 35.7 (31.0-37.0) g/dL RDW 12.7 (11.5-15.5) % Plt Count 220 (150-450) k/uL MPV 7.5 Neutrophils % 55 % Lymphocytes % 36 % Monocytes % 6 % Eosinophils % 1 % Basophils % 1 % Neutrophils # 5.2 (1.3-7.7) k/uL Lymphocytes # 3.4 (1.0-4.8) k/uL Monocytes # 0.6 (0-1.0) k/uL Eosinophils # 0.1 (0-0.7) k/uL Basophils # 0.1 (0-0.2) k/uL PT 9.6 (9.0-12.0) sec INR 0.9 (<1.2) APTT 24.1 (22.0-30.0) sec D-Dimer 0.23 (<0.60) mg/L FEU Sodium 137 (137-145) mmol/L Potassium 4.1 (3.5-5.1) mmol/L Chloride 103 (98-107) mmol/L Carbon Dioxide 22 (22-30) mmol/L Anion Gap 12 mmol/L BUN 16 (9-20) mg/dL Creatinine 0.79 (0.66-1.25) mg/dL Est GFR (CKD-EPI)AfAm >90 (>60 ml/min/1.73 sqM) Est GFR (CKD-EPI)NonAf >90 (>60 ml/min/1.73 sqM) Glucose 100 H (74-99) mg/dL Calcium 9.9 (8.4-10.2) mg/dL Magnesium 2.2 (1.6-2.3) mg/dL Total Bilirubin 0.5 (0.2-1.3) mg/dL AST 31 (17-59) U/L ALT 30 (4-49) U/L Alkaline Phosphatase 75 (38-126) U/L Troponin I (0.000-0.034) ng/mL Total Protein 8.3 H (6.3-8.2) g/dL Albumin 4.8 (3.5-5.0) g/dL 05/13/20 Range/Units 22:00 WBC (3.8-10.6) k/uL RBC (4.30-5.90) m/uL Hgb (13.0-17.5) gm/dL Hct (39.0-53.0) % MCV (80.0-100.0) fL MCH (25.0-35.0) pg MCHC (31.0-37.0) g/dL RDW (11.5-15.5) % Plt Count (150-450) k/uL MPV Neutrophils % % Lymphocytes % % Monocytes % % Eosinophils % % Basophils % % Neutrophils # (1.3-7.7) k/uL Lymphocytes # (1.0-4.8) k/uL Monocytes # (0-1.0) k/uL Eosinophils # (0-0.7) k/uL Basophils # (0-0.2) k/uL PT (9.0-12.0) sec INR (<1.2) APTT (22.0-30.0) sec D-Dimer (<0.60) mg/L FEU Sodium (137-145) mmol/L Potassium (3.5-5.1) mmol/L Chloride (98-107) mmol/L Carbon Dioxide (22-30) mmol/L Anion Gap mmol/L BUN (9-20) mg/dL Creatinine (0.66-1.25) mg/dL Est GFR (CKD-EPI)AfAm (>60 ml/min/1.73 sqM) Est GFR (CKD-EPI)NonAf (>60 ml/min/1.73 sqM) Glucose (74-99) mg/dL Calcium (8.4-10.2) mg/dL Magnesium (1.6-2.3) mg/dL Total Bilirubin (0.2-1.3) mg/dL AST (17-59) U/L ALT (4-49) U/L Alkaline Phosphatase (38-126) U/L Troponin I <0.012 (0.000-0.034) ng/mL Total Protein (6.3-8.2) g/dL Albumin (3.5-5.0) g/dL Disposition Clinical Impression: Atypical chest pain, Paresthesia Disposition: HOME SELF-CARE Condition: Good Instructions (If sedation given, give patient instructions): Chest Pain (ED) Additional Instructions: Please follow-up with your doctor. If you have any worsening symptoms return to the emergency room. Is patient prescribed a controlled substance at d/c from ED?: No Referrals: Checo Spears MD [Primary Care Provider] - 1-2 days Time of Disposition: 23:58
[2020-05-13 22:15] LABS: Basophils # (A) 0.1 k/uL (0-0.2); Basophils % (A) 1 %; Eosinophils # (A) 0.1 k/uL (0-0.7); Eosinophils % (A) 1 %; HGB 17.8 gm/dL (13.0-17.5); Lymphocytes # (A) 3.4 k/uL (1.0-4.8); Lymphocytes % (A) 36 %; MCH 31.9 pg (25.0-35.0); MCHC 35.7 g/dL (31.0-37.0); MCV 89.5 fL (80.0-100.0); Mean Platelet Volume 7.5; Monocytes # (A) 0.6 k/uL (0-1.0); Monocytes % (A) 6 %; Neutrophils # (A) 5.2 k/uL (1.3-7.7); Neutrophils % (A) 55 %; Platelet Count 220 k/uL (150-450); RBC 5.59 m/uL (4.30-5.90); RDW 12.7 % (11.5-15.5); WBC 9.4 k/uL (3.8-10.6)
[2020-05-13 22:24] LABS: ALT 30 U/L (4-49); AST 31 U/L (17-59); African American GFR (CKD) >90 (>60 ml/min/1.73 sqM); Albumin 4.8 g/dL (3.5-5.0); Alkaline Phosphatase 75 U/L (38-126); Anion Gap 12 mmol/L; Blood Urea Nitrogen 16 mg/dL (9-20); Calcium 9.9 mg/dL (8.4-10.2); Carbon Dioxide 22 mmol/L (22-30); Chloride 103 mmol/L (98-107); Glucose 100 mg/dL (74-99); Magnesium 2.2 mg/dL (1.6-2.3); Non-African American GFR(CKD) >90 (>60 ml/min/1.73 sqM); Potassium 4.1 mmol/L (3.5-5.1); Sodium 137 mmol/L (137-145); Total Bilirubin 0.5 mg/dL (0.2-1.3); Total Protein 8.3 g/dL (6.3-8.2)
--- NOTE | 2020-05-13 22:31 | XR ---
EXAMINATION TYPE: XR chest 2V DATE OF EXAM: 05/13/2020 COMPARISON: 05/11/2020 HISTORY: Chest pain TECHNIQUE: FINDINGS: Heart and mediastinum are normal. Lungs are clear. Diaphragm is normal. There are chest kelsy ds. Bony thorax is intact. IMPRESSION: Normal chest. No change.
[2020-05-13 22:32] LABS: D-Dimer 0.23 mg/L FEU (<0.60); INR 0.9 (<1.2); Partial Thromboplastin Time 24.1 sec (22.0-30.0); Prothrombin Time 9.6 sec (9.0-12.0)
[2020-05-14 00:38] VITALS: BP 131/81; PULSE 80; TEMP 97.7
== END 2020-05-14 00:31 | disposition home or self-care (01) ==
LOC: EC 21:21
DX: R07.89 Other chest pain (principal); R20.2 Paresthesia of skin; M54.2 Cervicalgia; I10 Essential (primary) hypertension; F17.200 Nicotine dependence, unspecified, uncomplicated; Z79.899 Other long term (current) drug therapy; Z96.611 Presence of right artificial shoulder joint
CPT/HCPCS: 36415; 71046; 80053; 83735; 84484; 85025; 85379; 85610; 85730; 93005; 99285

== ENCOUNTER → 2023-05-09 | Outpatient (CLI) | payer BC ==
--- NOTE | 2023-05-09 16:19 | P.SLEEP ---
History of Present Illness DATE: 05/09/2023 CONSULTATION/NEW PATIENT EVALUATION HISTORY OF PRESENT ILLNESS/SLEEP-WAKE EVALUATION: 47 year old gentleman had been evaluated in the sleep center for possible obstructive sleep apnea hypopnea syndrome. SLEEP SCHEDULE: Usually sleep schedule from 9 PM to 4 AM on weekdays and from 10 PM to 5 AM on weekend. FALLING ASLEEP: No problems with falling asleep. DURING SLEEP: Patient has loud snoring, witnessed episodes of stop breathing during the sleep, restless leg symptoms, multiple awakenings from sleep up to 10 times with episodes of gasping for air and up to one time episode of nocturia during sleep. No history of hypnogogical hallucinations, sleep paralysis, or cataplexy. DURING THE DAY/WAKE STATE: In the morning patient wake up tired, has episodes of irritability and sleepiness. [place] sleepiness scale is significantly increased to 15. Usually patient doesn't take naps. PAST MEDICAL HISTORY: Hypertension, ALLERGY, acid reflux, hyperlipidemia. PAST SURGICAL HISTORY: Right shoulder surgery, surgical treatment for kidney stone in 2019. MEDICATIONS: Aspirin 81 mg once a day, losartan 50 mg once a day, Zyrtec 10 mg once a day, omeprazole 20 mg once a day. SOCIAL HISTORY: Positive for smoking for about 30 pack years, patient continued to smoke, alcohol consumption occasional. FAMILY HISTORY: Heart problems, snoring, diabetes. REVIEW OF SYSTEMS: Loud snoring, multiple awakenings from sleep, sleepiness during the day. No fevers. No double vision. No recent chest pain. No shortness of breath. No abdominal pain. No bleeding episodes. No blood in urine. No seizure episodes. PHYSICAL EXAMINATION: GENERAL: A pleasant patient without any distress. VITAL SIGNS: BP 160/91 , HR 92 , RR 16 , weight 223 pounds, height 5 foot 9-1/4 inches, body mass index 32.7 . HEENT: PERRLA, EOMI. Evaluation of oropharynx showed tongue protrudes midline, low position of soft palate Mallampati 4. NECK: Supple. No JVD. Thyroid is not palpable. 18.5 inches in circumference. LUNGS: Clear to percussion and to auscultation. Good air exchange. No wheezing or rhonchi. HEART: S1, S2 regular. No murmurs, gallops or rubs. ABDOMEN: Soft and nontender. Bowel sounds are present. No organomegaly appreciated. EXTREMITIES: No clubbing or cyanosis. 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 Cranial nerves 2 to 7 intact. There is no fasciculation or atrophy noted. No focal deficits observed. ASSESSMENT: 1. Loud snoring, witnessed episodes of stop breathing during the sleep, extreme ly low position of soft palate Mallampati 4, wide neck 18.5 inches in circumference, sleepiness with [place] Sleepiness Scale 15. Obstructive sleep apnea hypopnea syndrome. 2. Hypertension. 3. ALLERGY. 4. Acid reflux. 5 hyperlipidemia. 6 . Status post right shoulder surgery. 7. Status post kidney stone removed in 2019. PLAN: 1. Home sleep apnea test for evaluation of patient's breathing during sleep. 2. CPAP/BiPAP titration if sleep study confirms obstructive sleep apnea- hypopnea syndrome. 3. Preferable position during sleep on the side. 4. No driving if patient feels any sleepiness. Patient is aware of civil and criminal liability for unsafe driving. 5. Sleep hygiene with regular sleep time for at least 7.5-8 hours. 6. Watching weight. Thank you very much for referring this patient for consultation. Sincerely, Zaki Luciano MD, PhD, FAASM. Diplomat of [place] [employer], Sleep Medicine Board by [employer] [place] [employer] [place] [employer] [facility] [place] Past Medical History Past Medical History: Hypertension Additional Past Medical History / Comment(s): kidney stones History of Any Multi-Drug Resistant Organisms: None Reported Past Surgical History: Orthopedic Surgery Additional Past Surgical History / Comment(s): right sided shoulder replacement, kidney stone removal. Past Psychological History: No Psychological Hx Reported Smoking Status: Current every day smoker Past Alcohol Use History: Rare Past Drug Use History: None Reported Medications and Allergies Home Medications Medication Instructions Recorded Confirmed Type Ibuprofen [Motrin] 800 mg PO TID PRN 12/22/18 05/11/20 History Losartan [Cozaar] 50 mg PO DAILY 05/11/20 05/11/20 History Omeprazole Magnesium [PriLOSEC OTC] 20 mg PO DAILY 05/11/20 05/11/20 History Aspirin 81 mg PO DAILY chew 05/12/20 Rx Atorvastatin Calcium [Lipitor] 20 mg PO HS #30 tab 05/12/20 Rx Chlorthalidone 25 mg PO DAILY #30 tab 05/12/20 Rx Melatonin 1 mg PO HS #30 tablet 05/12/20 Rx Nicotine 21Mg/24Hr Patch [Habitrol] 1 each TRANSDERM DAILY #14 patch 05/12/20 Rx Allergies Allergy/AdvReac Type Severity Reaction Status Date / Time No Known Allergies Allergy Verified 05/13/20 21:29 Sleep Note - Sleep Note Sleep Note: Temperature: Pulse Rate: Respiratory Rate: Blood Pressure: SpO2: Height: Weight: BMI: Neck Circumference:
== END ==
LOC: 3 N SLEEP 15:29
PROVIDERS: ATTEND Internal Medicine
DX: G47.33 Obstructive sleep apnea (adult) (pediatric) (principal); I10 Essential (primary) hypertension; G47.10 Hypersomnia, unspecified; K21.9 Gastro-esophageal reflux disease without esophagitis; E78.5 Hyperlipidemia, unspecified; F17.210 Nicotine dependence, cigarettes, uncomplicated; Z98.890 Other specified postprocedural states; Z87.442 Personal history of urinary calculi; Z79.82 Long term (current) use of aspirin; Z79.899 Other long term (current) drug therapy
CPT/HCPCS: 99211

== ENCOUNTER → 2023-05-20 | Outpatient (CLI) | payer BC ==
--- NOTE | 2023-05-25 11:01 | P.PCN ---
Description of Procedure: CLINICAL: A home sleep apnea test has been done for confirmation of possible obstructive sleep apnea-hypopnea syndrome. DESCRIPTION OF PROCEDURE: RESULTS: Recording time was 7 hours 9 minutes. Evaluation time was 6 hours 57 minutes. Evaluation time is sufficient for making conclusion about results of the test. Raw data of sleep recording has been reviewed and is adequate. Respiratory channel showed 198 apneas and 116 hypopneas. Apnea-hypopnea index was 45.0. Pulse rate minimal 60, maximum 149, average 75 per hour by computer calculation. Lowest desaturation was 84%. IMPRESSION: 1. Severe Obstructive Sleep Apnea Hypopnea Syndrome. Please see other impressions from consultation. PLAN: 1. The patient should have PAP titration for correction of respiratory abnormallities during sleep. 2. No driving if feeling any sleepiness. 3. Watching and losing weight. 4. Sleep hygiene with regular time in bed for at least 8 hours. Thank you very much for allowing me to participate in the management of your patient. Sincerely, Zaki Luciano MD, PhD, FAASM Diplomat of [employer] Sleep Medicine Board of [employer] [facility] [employer] [facility] [place]
== END ==
LOC: 3 N SLEEP 13:00
PROVIDERS: ATTEND Internal Medicine
DX: G47.33 Obstructive sleep apnea (adult) (pediatric) (principal); F17.200 Nicotine dependence, unspecified, uncomplicated; Z79.82 Long term (current) use of aspirin

== ENCOUNTER 2023-07-14 19:34 | Outpatient (CLI) | payer BC ==
--- NOTE | 2023-07-20 15:17 | P.PCN ---
Description of Procedure: CLINICAL: Titration with positive air pressure has been done for correction of respiratory abnormalities during sleep. DESCRIPTION OF PROCEDURE: The standard montage for clinical polysomnography included the electroencephalogram, the electrocardiogram, the mentalis surface electromyography and Lead II cardiography. The respiratory battery consisted of measurements of nasal /buccal air flow, pressure transducer measurements from the nose, thoracic and /or abdominal effort and intercostal surface electromyography. Video monitoring has been done to check for any parasomnia events. Nocturnal oxyhemoglobin saturations were obtained by finger oximetry. Step-aguilar titration with positive airway pressure was utilized to control respiratory events. Raw data of sleep recording has been reviewed and is adequate. RESULTS: Sleep efficiency was slightly decreased to 82.7%. Latency to sleep onset was in acceptable range 24.5 minutes.]. Sleep architecture showed stage N1 was normal 6.9%, Delta sleep was short only 1.3%, REM sleep was extremely short 1.1%. Heart rate was minimum 75 BPM, maximum 86 BPM, average 82 BPM. EMG showed 58.1 periodic limb movements per hour with 0.2 micriarousals per hour. PAP titration have been done with CPAP up to the pressure 9 cm H2O. The best results were at the pressure 9 cm H2O. Apnea hypopnea index reduced to 6.7. IMPRESSION: 1. Obstructive sleep apnea hypopnea syndrome mostly on controle with PAP treatment. 2. Significant periodic limb movements have been documented. Please see other impressions from consultation. PLAN: 1. The patient will have treatment with positive air pressure equipment with the level of pressure AutoPAP 5-13 cm H2O and should use it every night for the whole night. 2. Watching weight. 3. Sleep hygiene with regular time in bed for at least 8 hours. 4. No driving if feeling any sleepiness. 5. I will see the patient for follow up visit to explain the results of the test, recommendations, check compliance with treatment and make any necessary adjustment related to mask fitting, pressure and humidification. 6. Please check iron profile including ferritin level. Low level of iron may increase risk for periodic limb movements Thank you very much for allowing me to participate in the management of your patient. Sincerely, Zaki Luciano MD, PhD, FAASM Diplomat of [employer] Sleep Medicine Board of [employer] Medicine [facility] [place]
== END 2023-07-15 05:10 | disposition home or self-care (01) ==
LOC: 3 N SLEEP 19:34
PROVIDERS: ATTEND Internal Medicine
DX: G47.33 Obstructive sleep apnea (adult) (pediatric) (principal); G47.61 Periodic limb movement disorder; F17.200 Nicotine dependence, unspecified, uncomplicated
CPT/HCPCS: 95811

== ENCOUNTER → 2023-10-26 | Outpatient (CLI) | payer BC ==
[2023-10-26 16:24] VITALS: BP 134/86; PULSE 92; RESP 16; TEMP 98
--- NOTE | 2023-10-26 17:05 | P.PROGSL ---
Subjective DATE: 10/26/2023 FOLLOW UP VISIT. Patient with obstructive sleep apnea hypopnea syndrome return to sleep center for follow-up visit. Recently patient had sleep study which documented obstructive sleep apnea hypopnea syndrome. Patient was initiated on PAP therapy and today is first visit after treatment was started. I discussed with patient and family results of sleep studies. Patient was able to use PAP equipment every night for the whole night. The patient does not have significant problems with the mask, PAP pressure and humidification. [place] sleepiness scale is 6, which is normal. I checked information from PAP unit. PAP unit pressure 5-13, average 9.3 cm H2O. Usage is 70% for more then 4 hours, average 5.5 hours per night. Leak is 9.4 l/m, which is in acceptable range. Apnea Hypopnea Index is 1.1, which is normal. MEDICATIONS: Please see below During physical exam: GENERAL: A pleasant patient without any distress. VITAL SIGNS: Please see below, weight 226 pounds. HEENT: PERRLA, EOMI.low position of soft palate, Mallapati 4 . NECK: Supple. No JVD. LUNGS: Clear to percussion and to auscultation. Good air exchange. No wheezing or rhonchi. HEART: S1, S2 regular. ABDOMEN: Soft and nontender. Slightly obese EXTREMITIES: No clubbing or cyanosis. 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 No focal deficit. Impressions: 1. Obstructive sleep apnea-hypopnea syndrome. Patient demonstrated borderline compliance with treatment, benefiting from treatment. 2. Hypertension. 3. Acid reflux. 4. Allergy. 5. Hyperlipidemia. 6. Status post right shoulder surgery. 7. Status post kidney stone removed in 2019. 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 I teach patient how to adjust humidity level and temperature in the tube. Plan: 1. Continue using PAP equipment every night for the whole night. 2. To change air filter at least 1-2 times per month. 3. PAP unit should stay lower then position of the head. 4. Advised patient to remove all remaining water from humidifier canister daily and make it dry after each usage. Refill canister with fresh distilled water before each usage. 5. Sleep hygiene with regular time in bed for at least 8 hours. 6. Precautions related to driving. No driving if feel any sleepiness. 7. I will maintain prescription for PAP supplies including mask, tube, filters. 8. Follow up visit in 6 months or earlier if patient has any problems. 9. Watching and losing weight. Thank you very much for allowing me to participate in the management of your patient. Zkai Luciano MD, PhD, FAASM. Diplomat of [place] [employer], Sleep Medicine Board by [place] [employer] Outside Salesperson of [facility] [place] Objective - Vital Signs Vital Signs: Vital Signs Temp 98 F 10/26/23 16:24 Pulse 92 10/26/23 16:24 Resp 16 10/26/23 16:24 BP 134/86 10/26/23 16:24 Pulse Ox 96 10/26/23 16:24 FiO2 Intake & Output 10/25/23 10/26/23 10/26/23 18:59 06:59 18:59 Weight 102.512 kg Home Medications: Home Medications Medication Instructions Recorded Confirmed Type Ibuprofen [Motrin] 800 mg PO TID PRN 12/22/18 10/26/23 History Losartan [Cozaar] 50 mg PO DAILY 05/11/20 10/26/23 History Omeprazole Magnesium [PriLOSEC OTC] 20 mg PO DAILY 05/11/20 10/26/23 History Aspirin 81 mg PO DAILY chew 05/12/20 10/26/23 Rx Atorvastatin Calcium [Lipitor] 20 mg PO HS #30 tab 05/12/20 Rx Chlorthalidone 25 mg PO DAILY #30 tab 05/12/20 Rx Melatonin 1 mg PO HS #30 tablet 05/12/20 Rx Nicotine 21Mg/24Hr Patch [Habitrol] 1 each TRANSDERM DAILY #14 patch 05/12/20 10/26/23 Rx
== END ==
LOC: 3 N SLEEP 16:16
PROVIDERS: ATTEND Internal Medicine
DX: G47.33 Obstructive sleep apnea (adult) (pediatric) (principal); I10 Essential (primary) hypertension; K21.9 Gastro-esophageal reflux disease without esophagitis; E78.5 Hyperlipidemia, unspecified; F17.200 Nicotine dependence, unspecified, uncomplicated; Z98.890 Other specified postprocedural states; Z99.89 Dependence on other enabling machines and devices; Z87.442 Personal history of urinary calculi; Z79.899 Other long term (current) drug therapy
CPT/HCPCS: 99212